=== PATIENT | male | born 1965 | race Caucasian/White ===

== ENCOUNTER 2017-09-18 18:09 | Observation (INO) ==
[2017-09-18] MEDS ORDERED: 0.9 % Sodium Chloride 1,000 ML IVC ONE (19:13)
--- NOTE | 2017-09-18 19:13 | Emergency Department Note ---
Disposition Clinical Impression: Brugada syndrome, Vertigo Syncope Qualifiers: Syncope type: unspecified Qualified Code(s): R55 - Syncope and collapse Disposition: Admitted As Inpatient Condition: Good Time of Disposition: 21:18 General Adult HPI - General Chief complaint: ED Syncope Stated complaint: Near Syncope Time Seen by Provider: 09/18/17 18:14 Source: patient, EMS Limitations: no limitations Nursing Notes Reviewed: Yes Vital Signs Reviewed: Yes - History of Present Illness HPI Narrative: 52-year-old male with past medical history of CAD, hypertension, diabetes presents to the emergency department after having a syncopal episode at work. 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 While at work, patient states that he began getting dizzy, having the sensation that the room is spinning, and states that he passed out. Patient states that he was caught by fellow employees before he hit the ground. Patient denies having any history of this before. Patient states that he has a headache that he describes pain all over. Patient's fiancee states that he acts like this when he has issues with his diabetes. Patient does not currently have insurance so he can't get his medications. Pain Scale: 9 - Related Data Home Medications Medication Instructions Recorded Confirmed Aspirin Enteric Coated [Aspirin EC] 81 mg PO DAILY 09/18/17 09/18/17 Esomeprazole Magnesium [Nexium 20 mg PO DAILY 09/18/17 09/18/17 24Hr] Famotidine [Pepcid] 20 mg PO DAILY 09/18/17 09/18/17 Insulin DETEMIR [Levemir Flextouch] 80 unit SQ BID 09/18/17 09/18/17 Insulin LISPRO [Humalog Kwikpen 45 unit SQ BID 09/18/17 09/18/17 U-100] Allergies Allergy/AdvReac Type Severity Reaction Status Date / Time No Known Allergies Allergy Verified 12/21/15 22:42 All systems ED: reviewed and negative except as stated. Review of Systems: As Per HPI Constitutional: Denies: fever Cardiovascular: Reports: syncope. Denies: chest pain, palpitations Respiratory: Denies: dyspnea Gastrointestinal: Denies: nausea, vomiting Genitourinary: Denies: urgency Musculoskeletal: Denies: back pain Integumentary: Denies: rash Neurological: Reports: headache, paresthesias, vertigo Endocrine: Denies: fatigue Past Medical History - Past Medical History Medical history: Reports: diabetes, hypertension, myocardial infarction Psychiatric history: Reports: no psych history - Social History Smoking Status: Current every day smoker Smokeless Tobacco Status: Yes Alcohol use: Reports: occasionally Drug use: Reports: none Physical Exam General: 52-year-old male, speech is sluggish but not slurred Head: autraumatic, EOMI, no conjuncitval pallor, no scleral icterus, Mouth: oral mucous membranes moist Neck: neck soft, trachea midline Chest:: Equal chest wall rise Lungs: Normal lungs sounds bilaterally, no wheezes, no respiratory distress Heart: normal heart sounds, normal rate and rhythm, Abdomen: soft, non-tender, no rigidity, no guarding, no rebdound tenderness Lower Extremities: no pedal edema, calves non-tender Integumentary: Skin warm, dry, and intact Neuro: Bilateral horizontal nystagmus , constricted pupils Alert and oriented to person, place, time, cranial nerves II through XII grossly intact, strength 5 out of 5 in the upper and lower extremities bilaterally, sensation intact, no pronator drift, GCS 15 Psych: normal affect, normal mood - General Limitations: no limitations General appearance: alert, in no apparent distress Course Vital Signs Temperature 97.8 F 09/18/17 18:10 Pulse Rate 88 09/18/17 18:10 Respiratory Rate 16 09/18/17 18:10 Blood Pressure 123/90 09/18/17 18:10 O2 Sat by Pulse Oximetry 97 09/18/17 18:10 Temperature 98.8 F 09/20/17 11:56 Pulse Rate 85 09/20/17 11:56 Respiratory Rate 15 09/20/17 11:56 Blood Pressure 119/79 09/20/17 11:56 O2 Sat by Pulse Oximetry 96 09/20/17 11:56 Oxygen Delivery Oxygen Delivery Room Air Medical Decision Making - [facility] Narrative Medical decision making narrative: 52-year-old male presents to the emergency department after having his first syncopal episode. This was initially concerning for arrhythmia. Electrocardiogram obtained reveals a Brugada-type pattern. CT scan of the head was obtained and is the patient appeared to have an altered mental status. Patient's stated that his was a little more sluggish than normal. CT scan of the head was normal. Patient was given IV normal saline, Benadryl, Reglan, Toradol in the emergency department. He is also given meclizine for his vertigo. After administration of the medications, patient began to seem more alert and stated that his vertigo went away and that his headache had reduced. Patient had a mild leukocytosis of 11.9 but I do not suspect an infection at this time. I spoke with the inventory control coordinator on the phone regarding the patient's Brugada-type pattern. He stated that he will be okay to console him on the case and he would come by and see the patient in the morning. I spoke with the hospitalist regarding this patient as the electrocardiogram findings with a first episode of syncope with history of sudden cardiac in the family with this picture of new onset vertigo and headache was concerning to send this patient home. He agreed to admit the patient to time. I spoke with the patient and his fiancee regarding admission and they agreed with the plan. Chest X-Ray 09/18/17 18:18 IMPRESSION: No acute process. Mild left lower lobe atelectasis D/ / Sergio Hernandez MD / Sergio Hernandez MD Interpreting Provider: Sergio Hernandez MD Head CT 09/18/17 18:19 IMPRESSION: Negative CT brain with no acute intracranial abnormality. D/ / Oj Wright MD / Oj Wright MD Interpreting Provider: Oj Wright MD Vital Signs Temperature 97.8 F 09/18/17 18:10 Pulse Rate 88 09/18/17 18:10 Respiratory Rate 16 09/18/17 18:10 Blood Pressure 123/90 09/18/17 18:10 O2 Sat by Pulse Oximetry 97 09/18/17 18:10 Temperature 98.6 F 09/18/17 23:07 Pulse Rate 73 09/18/17 23:07 Respiratory Rate 16 09/18/17 23:07 Blood Pressure 108/70 09/18/17 23:07 O2 Sat by Pulse Oximetry 96 09/18/17 23:07 Oxygen Delivery Oxygen Delivery Room Air - Medical Records Medical records reviewed: Yes I reviewed the patient's medical records. - Lab Data Lab results reviewed: Yes I reviewed the patient's lab results. Result diagrams: 09/20/17 02:46 09/20/17 02:46 Lab Results 09/18/17 09/18/17 09/18/17 Range/Units 19:04 19:04 19:04 WBC 11.9 H (4.3-11.1) K/mcL RBC 4.81 (4.19-5.50) M/mcL Hgb 14.9 (12.9-16.9) g/dL Hct 39.8 (37.5-50.1) % MCV 82.7 L (83.0-100.0) fL MCH 31.0 (28.0-33.3) pg MCHC 37.4 H (31.6-35.5) g/dL RDW 12.1 (11.5-14.5) % Plt Count 210 (140-400) K/mcL MPV 8.9 L (9.4-12.4) fL Immature Gran % 0.4 (0-4) % Seg Neutrophils % 87.1 % Lymphocytes % 8.2 % Monocytes % 3.7 % Eosinophils % 0.3 % Basophils % 0.3 % Neutrophils # 10.4 H (1.6-8.9) K/mcL Lymphocytes # 1.0 (0.6-4.6) K/mcL Monocytes # 0.4 (0.0-1.3) K/mcL Eosinophils # 0.0 (0.0-0.6) K/mcL Basophils # 0.0 (0.0-0.2) K/mcL PT 11.2 (9.4-12.1) Seconds INR 1.0 APTT 28.6 (26.0-36.0) Seconds Sodium 134 L (136-145) mEq/L Potassium 3.7 (3.5-4.5) mEq/L Chloride 100 (98-109) mEq/L Carbon Dioxide 24 (19-29) mEq/L BUN 10 (8-26) mg/dL Creatinine 0.97 (0.72-1.25) mg/dL Est GFR ( Amer) > 60 (> 60) Est GFR (Non-Af Amer) > 60 (> 60) BUN/Creatinine Ratio 10 (6-26) Glucose 237 H (70-99) mg/dL POC Glucose (58-89) Calculated Osmolality 285 (280-300) Calcium 9.1 (8.6-10.8) mg/dL Troponin I (0-0.03) ng/mL Beta-Hydroxybutyric Acd (0.02-0.27) mmol/L Urine Color (Yellow) Urine Clarity (Clear) Urine pH (5.0-8.0) pH Units Ur Specific [place] (1.010-1.025) Urine Protein (Neg-Trace) mg/dL Urine Glucose (UA) (Normal) mg/dL Urine Ketones (Negative) mg/dL Urine Blood (Negative) Urine Nitrite (Negative) Urine Bilirubin (Negative) Urine Urobilinogen (Normal) mg/dL Ur Leukocyte Esterase (Negative) Ur Culture Indicated? (NO) Urine Opiates Screen (Yjipsn=903) ng/mL Ur Barbiturates Screen (Lxewgi=055) ng/mL Ur Phencyclidine Scrn (Cutoff=25) ng/mL Ur Amphetamines Screen (Rmckys=5825) ng/mL U Benzodiazepines Scrn (Fctvkj=974) ng/mL Urine Cocaine Screen (Cutoff= 300) ng/mL U Marijuana (THC) Screen (Cutoff = 50) ng/mL 09/18/17 09/18/17 09/18/17 Range/Units 19:04 19:04 19:19 WBC (4.3-11.1) K/mcL RBC (4.19-5.50) M/mcL Hgb (12.9-16.9) g/dL Hct (37.5-50.1) % MCV (83.0-100.0) fL MCH (28.0-33.3) pg MCHC (31.6-35.5) g/dL RDW (11.5-14.5) % Plt Count (140-400) K/mcL MPV (9.4-12.4) fL Immature Gran % (0-4) % Seg Neutrophils % % Lymphocytes % % Monocytes % % Eosinophils % % Basophils % % Neutrophils # (1.6-8.9) K/mcL Lymphocytes # (0.6-4.6) K/mcL Monocytes # (0.0-1.3) K/mcL Eosinophils # (0.0-0.6) K/mcL Basophils # (0.0-0.2) K/mcL PT (9.4-12.1) Seconds INR APTT (26.0-36.0) Seconds Sodium (136-145) mEq/L Potassium (3.5-4.5) mEq/L Chloride (98-109) mEq/L Carbon Dioxide (19-29) mEq/L BUN (8-26) mg/dL Creatinine (0.72-1.25) mg/dL Est GFR ( Amer) (> 60) Est GFR (Non-Af Amer) (> 60) BUN/Creatinine Ratio (6-26) Glucose (70-99) mg/dL POC Glucose 237 H (58-89) Calculated Osmolality (280-300) Calcium (8.6-10.8) mg/dL Troponin I 0.00 (0-0.03) ng/mL Beta-Hydroxybutyric Acd 0.21 (0.02-0.27) mmol/L Urine Color (Yellow) Urine Clarity (Clear) Urine pH (5.0-8.0) pH Units Ur Specific [place] (1.010-1.025) Urine Protein (Neg-Trace) mg/dL Urine Glucose (UA) (Normal) mg/dL Urine Ketones (Negative) mg/dL Urine Blood (Negative) Urine Nitrite (Negative) Urine Bilirubin (Negative) Urine Urobilinogen (Normal) mg/dL Ur Leukocyte Esterase (Negative) Ur Culture Indicated? (NO) Urine Opiates Screen (Ytzwie=200) ng/mL Ur Barbiturates Screen (Qjhqrx=655) ng/mL Ur Phencyclidine Scrn (Cutoff=25) ng/mL Ur Amphetamines Screen (Jrnfvl=4272) ng/mL U Benzodiazepines Scrn (Tlttpg=869) ng/mL Urine Cocaine Screen (Cutoff= 300) ng/mL U Marijuana (THC) Screen (Cutoff = 50) ng/mL 09/18/17 09/18/17 Range/Units 19:31 19:31 WBC (4.3-11.1) K/mcL RBC (4.19-5.50) M/mcL Hgb (12.9-16.9) g/dL Hct (37.5-50.1) % MCV (83.0-100.0) fL MCH (28.0-33.3) pg MCHC (31.6-35.5) g/dL RDW (11.5-14.5) % Plt Count (140-400) K/mcL MPV (9.4-12.4) fL Immature Gran % (0-4) % Seg Neutrophils % % Lymphocytes % % Monocytes % % Eosinophils % % Basophils % % Neutrophils # (1.6-8.9) K/mcL Lymphocytes # (0.6-4.6) K/mcL Monocytes # (0.0-1.3) K/mcL Eosinophils # (0.0-0.6) K/mcL Basophils # (0.0-0.2) K/mcL PT (9.4-12.1) Seconds INR APTT (26.0-36.0) Seconds Sodium (136-145) mEq/L Potassium (3.5-4.5) mEq/L Chloride (98-109) mEq/L Carbon Dioxide (19-29) mEq/L BUN (8-26) mg/dL Creatinine (0.72-1.25) mg/dL Est GFR ( Amer) (> 60) Est GFR (Non-Af Amer) (> 60) BUN/Creatinine Ratio (6-26) Glucose (70-99) mg/dL POC Glucose (58-89) Calculated Osmolality (280-300) Calcium (8.6-10.8) mg/dL Troponin I (0-0.03) ng/mL Beta-Hydroxybutyric Acd (0.02-0.27) mmol/L Urine Color Yellow (Yellow) Urine Clarity Clear (Clear) Urine pH 6.0 (5.0-8.0) pH Units Ur Specific [place] 1.023 (1.010-1.025) Urine Protein Negative (Neg-Trace) mg/dL Urine Glucose (UA) >=1000 H (Normal) mg/dL Urine Ketones Negative (Negative) mg/dL Urine Blood Negative (Negative) Urine Nitrite Negative (Negative) Urine Bilirubin Negative (Negative) Urine Urobilinogen Normal (Normal) mg/dL Ur Leukocyte Esterase Negative (Negative) Ur Culture Indicated? NO (NO) Urine Opiates Screen Negative (Bxyqfk=691) ng/mL Ur Barbiturates Screen Negative (Coxtqe=561) ng/mL Ur Phencyclidine Scrn Negative (Cutoff=25) ng/mL Ur Amphetamines Screen Negative (Zhiydx=4021) ng/mL U Benzodiazepines Scrn Negative (Fowpwr=946) ng/mL Urine Cocaine Screen Negative (Cutoff= 300) ng/mL U Marijuana (THC) Screen Negative (Cutoff = 50) ng/mL - Radiology Data Radiology results reviewed: Yes I reviewed the patient's radiology results. Chest X-Ray 09/18/17 18:18 IMPRESSION: No acute process. Mild left lower lobe atelectasis D/ / Sergio Hernandez MD / Sergio Hernandez MD Interpreting Provider: Sergio Hernandez MD Head CT 09/18/17 18:19 IMPRESSION: Negative CT brain with no acute intracranial abnormality. D/ / Oj Wright MD / Oj Wright MD Interpreting Provider: Oj Wright MD Echocardiogram 09/19/17 21:46 Impressions: LVEF 60%. Moderate left ventricular diastolic dysfunction. Normal right ventricular structure and function. Mild tricuspid regurgitation. No pulmonary hypertension. Left Ventricular Wall Motion: Rest Echo Findings All wall segments showed normal motion. Findings: Study Quality * Technically adequate exam. ECG Findings * Normal sinus rhythm. Left Ventricle * LVEF 60%. * Normal LV chamber size, wall thickness and function. * Moderate left ventricular diastolic dysfunction. Right Ventricle * Normal right ventricular structure and function. Left Atrium * Normal left atrial size. Right Atrium * Normal right atrial size. Aortic Valve * Trileaflet aortic valve. * Normal aortic valve structure. * No aortic stenosis. * Trace aortic regurgitation. Mitral Valve * Normal mitral valve structure. * No mitral regurgitation. * No mitral stenosis. Tricuspid Valve * Normal tricuspid valve structure. * Mild tricuspid regurgitation. * Estimated RA pressure is 8 mmHg. * Estimated RVSP is 28 mmHg. * No pulmonary hypertension. Pulmonic Valve * Pulmonic valve is not well visualized. * No pulmonic stenosis. * No pulmonic regurgitation. Pulmonary Artery * Pulmonary artery not well visualized. Aorta * Normally sized aortic root. Pericardium * There is no pericardial effusion present. Interatrial Septum * No evidence of PFO by color Doppler. IVC * The IVC is not dilated. * < 50% respiratory change. - EKG Data EKG #1 EKG attestation: Yes I reviewed and interpreted this EKG. EKG results narrative: 18:21 Ventricular rate 87 bpm, MI interval 159 ms, QRS duration 106 ms, QT 383 ms, QTC 428 ms, normal axis. Sinus rhythm with a ventricular rate of 87 bpm. Lead V2 revealed closed, saddle back ST elevation that is concerning for Brugada. This is slightly worsened from a previous electrocardiogram performed on February 23, 2009. Attestation Statement - Attestation Attestation: I examined this patient and my medical decision-making was reviewed with the Resident Physician, Dr. Hairston. I agree with the documented findings, disposition and treatment plan as described except to the extent set forth below. Pt is a 52 yo wm, with a hx of medication noncompliance and DM, HTN, who presents to the ER for syncope. Pt reports that he was at work, began having acute onset of dizziness, which he described as feeling like the "room was spinning", and then syncope. Pt was caught by co-workers, so no hx fall/trauma. Pt awakened within a few mintues, able to speak clearly. No shaking, no tongue biting, and no incontinence. Pt denies any preceding CP/press, heaviness, no SOB , no preceding VANN, no visual changes, no weakness/numbness of the ext. Pt on arrival now c/o mild gen VANN, grad in onset since the syncope, which he reports as similar to prior VANN's which he frequently experiences. Pt still c/o dizziness , but no other assocd sxs. I agree with pt's PE findings as documented. VS stable on arrival, NIHSS=0 on arrival. Pt seems drowsy, but GCS=15, oriented x 4. Pt's EKG on arrival significant for Brugada pattern, NSR. Pt received IV meds for VANN, dizziness, nausea, with significant improvement of his sxs. CXR and CT brain wnl. Labs otherwise wnl. Will admit pt for further cardiac eval for syncope with Brugada pattern on EKG. No prior cardiac eval. Also further eval for vertigo/VANN. D/W hospitalist who accepts pt for admission. VSS throughout ED course.
[2017-09-18] MEDS ORDERED: Ketorolac 15 MG/ML VIAL IVP ONE (19:14)
[2017-09-18 19:28] LABS: BUN/Creatinine Ratio 10 (6-26); Blood Urea Nitrogen 10 mg/dL (8-26); Calcium 9.1 mg/dL (8.6-10.8); Carbon Dioxide 24 mEq/L (19-29); Chloride 100 mEq/L (98-109); Glucose 237 mg/dL (70-99); Osmolality,Calculated 285 (280-300); Potassium 3.7 mEq/L (3.5-4.5); Sodium 134 mEq/L (136-145); eGFR For African Americans > 60 (> 60); eGFR For Non-African Americans > 60 (> 60)
[2017-09-18 19:31] LABS: Basophils % 0.3 %; Eosinophils % 0.3 %; Hematocrit 39.8 % (37.5-50.1); Hemoglobin 14.9 g/dL (12.9-16.9); Immature Granulocytes % 0.4 % (0-4); Lymphocytes % 8.2 %; Mean Corpuscular Volume 82.7 fL (83.0-100.0); Mean Platelet Volume 8.9 fL (9.4-12.4); Monocytes # 0.4 K/mcL (0.0-1.3); Monocytes % 3.7 %; Neutrophils # 10.4 K/mcL (1.6-8.9); Platelet Count 210 K/mcL (140-400); Red Blood Count 4.81 M/mcL (4.19-5.50); Red Cell Distribution Width 12.1 % (11.5-14.5); Segmented Neutrophils % 87.1 %
[2017-09-18 19:32] LABS: Mean Corpuscular HGB Conc 37.4 g/dL (31.6-35.5)
[2017-09-18 19:33] LABS: Prothrombin Time 11.2 Seconds (9.4-12.1)
[2017-09-18 19:35] LABS: Activated Partial Thrombo Time 28.6 Seconds (26.0-36.0)
[2017-09-18 19:41] LABS: Bilirubin,Urine Negative (Negative); Blood,Urine Negative (Negative); Clarity,Urine Clear (Clear); Color,Urine Yellow (Yellow); Glucose,Urine (UA) >=1000 mg/dL (Normal); Ketones,Urine Negative (Negative); Leukocyte Esterase,Urine Negative (Negative); Nitrite,Urine Negative (Negative); Protein,Urine Negative (Neg-Trace); Specific Gravity,Urine 1.023 (1.010-1.025); Urobilinogen,Urine Normal (Normal)
[2017-09-18 19:46] LABS: Amphetamine Screen,Urine Negative ng/mL (Cutoff=1000); Barbiturate Screen,Urine Negative ng/mL (Cutoff=200); Benzodiazepines Screen,Urine Negative ng/mL (Cutoff=200); Cannabinoid Screen,Urine Negative ng/mL (Cutoff = 50); Cocaine Screen,Urine Negative ng/mL (Cutoff= 300); Opiate Screen,Urine Negative ng/mL (Cutoff=300); Phencyclidine Screen,Urine Negative ng/mL (Cutoff=25)
[2017-09-18] MEDS ORDERED: Metoclopramide 10 MG/2 ML VIAL IVP ONE (20:11)
[2017-09-18] MEDS ORDERED: *HR* OxyCODONE Immed Rel 5 MG TABLET PO PRN (21:41)
[2017-09-18] MEDS ORDERED: Naloxone 0.4 MG/ML INJ IVP PRN (21:41)
[2017-09-18] MEDS ORDERED: INSULIN DETEMIR 80 UNIT SQ SCH (21:45)
[2017-09-18] MEDS ORDERED: *HR* Dextrose 50 % in Water (Syg) 50 ML SYRINGE IVP PRN (21:46)
[2017-09-18] MEDS ORDERED: D5% in Water 1,000 ML IVC PRN (21:46)
[2017-09-18] MEDS ORDERED: Dextrose Gel 15 GM PO PRN ×2 (21:46)
--- NOTE | 2017-09-18 21:49 | Internal Med History&Physical ---
Date of Encounter: 09/18/17 Time of Encounter: 21:47 Assessment and Plan (1) Near syncope Current visit: Yes Status: Acute Possibly related to dehydration/vasovagal EKG reads possible Brugada pattern, ER spoke with cardiology and the patient will be evaluated in the morning Monitor with telemetry, order echocardiogram Fall precautions Protonix 40 a prophylaxis and subcutaneous heparin for DVT prophylaxis. The patient will be admitted for observation. Full code. Time spent this admission 40 minutes (2) CAD (coronary artery disease) Current visit: Yes Status: Acute Continue aspirin Not taking a beta hamlet Qualifiers: Coronary Disease-Associated Artery/Lesion type: [place] artery [place] vs. transplanted heart: [place] heart Associated angina: without angina Qualified Code(s): I25.10 - Atherosclerotic heart disease of [place] coronary artery without angina pectoris (3) Tobacco abuse Current visit: Yes Status: Acute Nicotine patch ordered (4) Diabetes Current visit: Yes Status: Acute Uses Levemir 80 units twice a day Humalog 45 units twice a day, we will ordered 20 units 3 times a day plus insulin sliding scale Qualifiers: Diabetes mellitus type: type 2 Diabetes mellitus complication status: without complication Diabetes mellitus fci insulin use: without fci use Qualified Code(s): E11.9 - Type 2 diabetes mellitus without complications (5) GERD (gastroesophageal reflux disease) Current visit: Yes Status: Acute Continues Protonix IV and may switch to oral PPI in the morning, the patient takes Nexium Continue famotidine, needs follow-up as an outpatient Qualifiers: Esophagitis presence: without esophagitis Qualified Code(s): K21.9 - Gastro -esophageal reflux disease without esophagitis Internal Medicine - H&P: HPI Chief complaint: Near syncopal Admitted From: Emergency Dept History of present illness: Mr. Shook is a 52 year old male with a past medical history of CAD with stents , diabetes type 2 insulin-dependent, tobacco use, GERD, came to the emergency room complaining of dizziness that started at 5:30 PM, he was at work and all of a sudden he felt dizzy like the room was spinning and almost fell, was caught by a coworker, did not lose consciousness or hit his head. He came to the emergency room and EKG reads possible Brugada pattern. He has never had this problem before but has experienced some nonspecific symptoms due to diabetes. CT scan of the head was unremarkable chest x-ray shows left mid lung atelectasis. He says he did not eat all day as he woke up with a very bad heartburn. Glucose is still 237 sodium 134 wet blood cell count 11.9 and has been complaining of a headache since the morning. Denies any other complaints, has not taken his insulin Past Med Surg Social Fam HX - Past Medical History Medical history: coronary artery disease (With history of stent), diabetes ( Insulin-dependent), GERD, hypertension, myocardial infarction, other (GERD, tobacco use) Psychiatric history: no psych history - Past Surgical History Surgical History: angioplasty/stent, orthopedic, other (Bilateral shoulder surgeries) - Social History Smoking Status: Current every day smoker Packs per day: Vapes Smokeless Tobacco Status: Yes Alcohol use: occasionally Drug use: none - Additional Family History Additional family history: Mother with a first myocardial infarction at the age of 38, father with several CVAs Internal Medicine - H&P: Meds Aspirin Enteric Coated [Aspirin EC] 81 mg PO DAILY 09/18/17 [History] Esomeprazole Magnesium [Nexium 24Hr] 20 mg PO DAILY 09/18/17 [History] Famotidine [Pepcid] 20 mg PO DAILY 09/18/17 [History] Insulin DETEMIR [Levemir Flextouch] 80 unit SQ BID 09/18/17 [History] Insulin LISPRO [Humalog Kwikpen U-100] 45 unit SQ BID 09/18/17 [History] 3 Allergy/AdvReac Type Severity Reaction Status Date / Time No Known Allergies Allergy Verified 12/21/15 22:42 All Systems PM: A 10-system review of systems was performed and is negative for pertinent findings except as documented above in the HPI. Review of systems: Mild headache, dizziness was worse when he was standing up. Other systems out of the 10 review are negative - Constitutional Vitals: Temp Pulse Resp BP Pulse Ox 97.8 F 86 13 113/75 95 09/18/17 18:10 09/18/17 21:45 09/18/17 21:45 09/18/17 21:45 09/18/17 21:45 General appearance: Present: A&O X 3 - Head Head exam: Present: atraumatic, normocephalic - Eye Eye exam: Present: PERRL, conjuntiva pink, sclera anicteric Pupils: Present: PERRL - Neck Neck exam general surgery: Present: supple, trachea midline. Absent: lymphadenopathy - Respiratory Respiratory exam: Present: CTAB. Absent: accessory muscle use, rales, rhonchi, wheezes - Cardiovascular Cardiovascular exam: Present: RRR, +S1, +S2. Absent: diastolic murmur, gallop, rubs, systolic murmur - GI/Abdominal GI/Abdominal exam: Present: normal bowel sounds, soft, no peritoneal signs. Absent: distended, tenderness - Extremities Exam Extremities exam: Present: warm, radial pulses palpable and symmetrical. Absent : calf tenderness, cyanotic, pedal edema - Neurological Exam Neurological exam: Present: CN II-XII intact, oriented X3, no focal deficits. Absent: pronater drift, facial droop, speech deficit - Skin Skin exam: Present: dry, intact Internal Med - H&P Results - Labs CBC & Chem 7: 09/18/17 19:04 09/18/17 19:04
[2017-09-18] MEDS: 0.9 % Sodium Chloride 1,000 ML IVC SCH (23:35)
[2017-09-18] MEDS: *HR* Heparin 5,000 UNIT/ML VIAL SQ SCH (23:35)
[2017-09-18] MEDS: Pantoprazole 40 MG VIAL IVP SCH (23:36)
[2017-09-18] MEDS: Famotidine 20 MG TABLET PO SCH (23:36)
[2017-09-18] MEDS: Insulin LISPRO 300 UNITS/3 ML VIAL SQ SCH (23:37)
[2017-09-18] MEDS: Insulin DETEMIR 100 UNIT/ML X5UNITS SQ SCH (23:40)
[2017-09-19] MEDS: Acetaminophen 325 MG TABLET PO PRN ×2 (03:57→14:46)
[2017-09-19 05:04] LABS: Hemoglobin A1C 9.6 %
[2017-09-19 05:16] LABS: BUN/Creatinine Ratio 12 (6-26); Blood Urea Nitrogen 11 mg/dL (8-26); Calcium 8.5 mg/dL (8.6-10.8); Carbon Dioxide 22 mEq/L (19-29); Chloride 106 mEq/L (98-109); Chol/HDL Ratio 4.8 (0-4.9); Cholesterol 213 mg/dL (< 200); Glucose 262 mg/dL (70-99); HDL Cholesterol 44 mg/dL (40-59); LDL Cholesterol,Calculated 99 mg/dL (0-99); Osmolality,Calculated 292 (280-300); Potassium 3.4 mEq/L (3.5-4.5); Sodium 137 mEq/L (136-145); Triglycerides 348 mg/dL (< 150); eGFR For African Americans > 60 (> 60); eGFR For Non-African Americans > 60 (> 60)
[2017-09-19] MEDS: Famotidine 20 MG TABLET PO SCH ×2 (06:23→16:03)
[2017-09-19] MEDS: *HR* Heparin 5,000 UNIT/ML VIAL SQ SCH ×3 (06:23→21:13)
[2017-09-19] MEDS: Pantoprazole 40 MG VIAL IVP SCH (08:04)
[2017-09-19] MEDS: Aspirin Enteric Coated 81 MG Tablet PO SCH (08:04)
[2017-09-19] MEDS: Nicotine 14 MG PATCH.TD24 TD SCH (08:04)
[2017-09-19] MEDS: Insulin LISPRO 300 UNITS/3 ML VIAL SQ SCH ×7 (08:05→20:18)
--- NOTE | 2017-09-19 09:31 | Cardiology Consult Note ---
Date of Encounter: 09/19/17 Time of Encounter: 09:29 Assessment and Plan (1) Near syncope Current Visit: Yes Status: Acute Most likely due to Orthostatic hypotension 2/2 uncontrolled diabetes/tobacco abuse/dehydration vs possibly 2/2 ACS/Brugada. A1C 9.6. EKG machine read Brugada, possible ST elevation in V2 similar to EKG take in 2009. Trops neg x1. Patient has no symptoms of ACS/CHF. Mother [place] at age 38 is concerning. - serial trops and ekg ordered - echo pending - stress test - consider social work consult for help with insurance and medications (2) CAD (coronary artery disease) Current Visit: Yes Status: Acute Patient has known hx of CAD with stent placement. EKG showed elevated ST elevation in V2 similar to EKG from 2009. ABDELRAHMAN score 3 - 4.4% risk of all- cause mortality. Patient continues to smoke, and currently takes only ASA81, and statin at home. Does not take B-hamlet at home. Qualifiers: Coronary Disease-Associated Artery/Lesion type: [place] artery [place] vs. transplanted heart: [place] heart Associated angina: without angina Qualified Code(s): I25.10 - Atherosclerotic heart disease of [place] coronary artery without angina pectoris (3) Tobacco abuse Current Visit: Yes Status: Acute Patient quit smoking 3 years ago, and currently vaps. 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 All questions were answered. Thank you for involving us in the care of your patient. Please call with any questions. History of Present Illness Consult date: 09/19/17 Requesting physician: Florencio Kasper Consult reason: EKG abnormality Chief complaint: dizziness History of present illness: Mr. Shook is a 52 year old male w/ PMHx of CAD w/ stent, T2DM, current tob use , and GERD who presented to the ED last night due to dizziness and feeling faint. In the ED, EKG was taken, and machine read Brugada pattern. Mother from [place] when she was 38. This is his first time having these types of symptoms. Unable to review old Medical Records, patient is not seen by [facility]. Patient reports having bad heartburn all day yesterday, and then last night at work he became light headed and the room started spinning, his coworker caught patient, but he reports fall but not losing consciouness. Patient did not eat all day yesterday, and has had an associated headache. Patient does not have insurance and pays for all medications out of pocket. He ran out of his nexium 2 days ago, and that's when started developing symptoms. Patient reports non-compliance with some home medications, but takes his ASA81, nexium, and insulin. Patient denies chest pain, SOB, sweating, inability to lay flat, waking up in the middle of the night to catch his breath, or increase SOB on exertion. Patient quit smoking 3 years ago and currently vaps. Past Med Surg Social Fam HX - Past Medical History Medical history: diabetes, hypertension, myocardial infarction Psychiatric history: no psych history - Past Surgical History Surgical History: angioplasty/stent, arthroscopy, orthopedic, other - Social History Smoking Status: Current every day smoker Packs per day: Vapes Smokeless Tobacco Status: Yes Alcohol use: occasionally Drug use: none - Family History Mother Living Status: Hx Family Cardiac Disorders: Yes Father Living Status: Hx Family Cardiac Disorders: Yes Medications and Allergies Aspirin Enteric Coated [Aspirin EC] 81 mg PO DAILY 09/18/17 [History] Esomeprazole Magnesium [Nexium 24Hr] 20 mg PO DAILY 09/18/17 [History] Famotidine [Pepcid] 20 mg PO DAILY 09/18/17 [History] Insulin DETEMIR [Levemir Flextouch] 80 unit SQ BID 09/18/17 [History] Insulin LISPRO [Humalog Kwikpen U-100] 45 unit SQ BID 09/18/17 [History] 3 Allergy/AdvReac Type Severity Reaction Status Date / Time No Known Allergies Allergy Verified 12/21/15 22:42 All Systems Review: A 10-system review of systems was performed and is negative for pertinent findings except as documented above in the HPI. - Constitutional Constitutional: headache(s), no anorexia - EENT Eyes: no blurred vision - Respiratory Respiratory: no cough, no dyspnea - Gastrointestinal Gastrointestinal: no abdominal pain - Neurological Neurological: dizziness, syncope (patient unsure if he lost consciousness or not ), no abnormal speech - Psychiatric Psychiatric: no anxiety, no depression Physical Examination Vital Signs, Last 4 Hours Temp Pulse Resp BP Pulse Ox 09/19/17 07:15 98.3 F 66 18 112/71 93 General: Conversant, No Apparent Distress HEENT: Atraumatic, Normocephaly, Mucus Membranes Moist, Other (no trauma during fal) Neck: Normal carotid pulses, Other (no carotid bruits) Cardiac: Reg Rate and Rhythm, Normal S1 and S2, No Murmur Lungs: Normal Breath Sounds, No Wheeze, Rales, Rhonchi Neuro: Alert and responsive, No focal deficits noted Abdomen: Soft, Non-Tender Skin: No rashes noted on visualized skin Musculoskeletal: No Chest Wall Tenderness Extremities: No Clubbing, No Cyanosis, No Edema, Normal Pulses Results 09/18/17 19:04 09/19/17 04:29 Lab Results 09/19/17 04:29 Sodium 137 Potassium 3.4 L Chloride 106 Carbon Dioxide 22 BUN 11 Creatinine 0.95 Glucose 262 H Calcium 8.5 L Consult Discharge Plan - Plan Referrals: Tenisha Benjamin [Primary Care Provider] -
[2017-09-19] MEDS: Insulin DETEMIR 100 UNIT/ML X5UNITS SQ SCH ×2 (12:38→20:00)
[2017-09-19] MEDS ORDERED: Ibuprofen 800 MG TABLET PO ONE (15:27)
--- NOTE | 2017-09-19 15:29 | Internal Med Progress Note ---
Date of Encounter: 09/19/17 Time of Encounter: 15:27 - Assessment and plan (1) CAD (coronary artery disease) Current Visit: Yes Status: Acute Assessment and plan: Leon Shook is a 52-year-old male with past medical history CAD, diabetes, tobacco use and migraines who presented to [facility] on 09/18 after a near-syncope event. Placed in observation status for further workup and treatment. 1. Syncope: On day of presentation. Patient reports an episode of almost passing out, states a coworker had to catch him so he did not fall. Did not lose consciousness. EKG concerning for Brugada pattern. Echo, stress test pending. May need EP evaluation. Cardiology following. 2. CAD: per hx with stents. Denies chest pain, troponin X2 negative. EKG as noted above. 09/19/2017 TTE with EF 60% and moderate diastolic dysfunction. Stress test planned for 09/20. LDL 100. Continue ASA, statin. 3. Migraines: per patient reported history. Relief with 800 mg ibuprofen. One time disordered 4. Diabetes: per hx. uncontrolled. Hgb A1c 9.6%. Continue home long-acting insulin. SSI. Monitor blood sugars and titrate PRN 5. Tobacco use: Current smoker. Cessation advised. Declines nicotine replacement therapy. 6. DVT prophylaxis: heparin Qualifiers: Coronary Disease-Associated Artery/Lesion type: [place] artery [place] vs. 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 Information obtained from chart review and patient report. Patient says he feels overall better but [place] of a headache. Says he gets migraines at home and takes 800 mg ibuprofen for relief. No chest pain, no shortness of breath, no palpitations or lightheadedness. No further near syncope incidents. - Constitutional Vitals: Temp Pulse Resp BP Pulse Ox 97.9 F 86 18 110/72 95 09/19/17 15:14 09/19/17 15:14 09/19/17 15:14 09/19/17 15:14 09/19/17 15:14 General appearance: Present: A&O X 3 - Head Head exam: Present: atraumatic, normocephalic - Eye Eye exam: Present: PERRL, conjuntiva pink, sclera anicteric Pupils: Present: PERRL - Neck Neck exam general surgery: Present: supple, trachea midline. Absent: lymphadenopathy - Respiratory Respiratory exam: Present: CTAB. Absent: accessory muscle use, rales, rhonchi, wheezes - Cardiovascular Cardiovascular exam: Present: RRR, +S1, +S2. Absent: diastolic murmur, gallop, rubs, systolic murmur - GI/Abdominal GI/Abdominal exam: Present: normal bowel sounds, soft, no peritoneal signs. Absent: distended, tenderness - Extremities Exam Extremities exam: Present: warm, radial pulses palpable and symmetrical. Absent : calf tenderness, cyanotic, pedal edema - Neurological Exam Neurological exam: Present: CN II-XII intact, oriented X3, no focal deficits. Absent: pronater drift, facial droop, speech deficit - Skin Skin exam: Present: dry, intact Internal Medicine: Result - Labs CBC & Chem 7: 09/18/17 19:04 09/19/17 04:29 Labs: BMP 09/19/17 04:29 Sodium 137 Potassium 3.4 L Chloride 106 Carbon Dioxide 22 BUN 11 Creatinine 0.95 Glucose 262 H Calcium 8.5 L Cardiac Enzymes 09/19/17 Range/Units 09:37 Troponin I 0.00 (0-0.03) ng/mL - ABG Interpretation ABG results: PT/INR, D-dimer PT 11.2 Seconds (9.4-12.1) 09/18/17 19:04 - Impressions Impressions Echocardiogram 09/19/17 21:46 Impressions: LVEF 60%. Moderate left ventricular diastolic dysfunction. Normal right ventricular structure and function. Mild tricuspid regurgitation. No pulmonary hypertension. Left Ventricular Wall Motion: Rest Echo Findings All wall segments showed normal motion. Findings: Study Quality * Technically adequate exam. ECG Findings * Normal sinus rhythm. Left Ventricle * LVEF 60%. * Normal LV chamber size, wall thickness and function. * Moderate left ventricular diastolic dysfunction. Right Ventricle * Normal right ventricular structure and function. Left Atrium * Normal left atrial size. Right Atrium * Normal right atrial size. Aortic Valve * Trileaflet aortic valve. * Normal aortic valve structure. * No aortic stenosis. * Trace aortic regurgitation. Mitral Valve * Normal mitral valve structure. * No mitral regurgitation. * No mitral stenosis. Tricuspid Valve * Normal tricuspid valve structure. * Mild tricuspid regurgitation. * Estimated RA pressure is 8 mmHg. * Estimated RVSP is 28 mmHg. * No pulmonary hypertension. Pulmonic Valve * Pulmonic valve is not well visualized. * No pulmonic stenosis. * No pulmonic regurgitation. Pulmonary Artery * Pulmonary artery not well visualized. Aorta * Normally sized aortic root. Pericardium * There is no pericardial effusion present. Interatrial Septum * No evidence of PFO by color Doppler. IVC * The IVC is not dilated. * < 50% respiratory change. Consult Discharge Plan - Plan Referrals: Tenisha Benjamin [Primary Care Provider] - 10/07/17 3:00 pm (This appointment will be with Windy Martinez CNP. )
[2017-09-19] MEDS: 0.9 % Sodium Chloride 1,000 ML IVC SCH (19:06)
[2017-09-20 03:18] LABS: Hematocrit 35.3 % (37.5-50.1); Mean Corpuscular HGB Conc 35.7 g/dL (31.6-35.5); Mean Corpuscular Hemoglobin 30.7 pg (28.0-33.3); Mean Corpuscular Volume 86.1 fL (83.0-100.0); Mean Platelet Volume 8.8 fL (9.4-12.4); Platelet Count 197 K/mcL (140-400); Red Cell Distribution Width 12.1 % (11.5-14.5)
[2017-09-20 03:27] LABS: Hemoglobin 12.6 g/dL (12.9-16.9)
[2017-09-20 03:34] LABS: Alanine Aminotransferase 30 Units/L (0-55); Albumin 2.8 g/dL (3.5-5.0); Albumin/Globulin Ratio 0.8 (1.1-2.2); Alkaline Phosphatase 87 Units/L (38-126); Aspartate Amino Transferase 24 Units/L (5-34); BUN/Creatinine Ratio 10 (6-26); Bilirubin,Total 0.3 mg/dL (0.2-1.2); Blood Urea Nitrogen 8 mg/dL (8-26); Calcium 8.2 mg/dL (8.6-10.8); Carbon Dioxide 22 mEq/L (19-29); Chloride 110 mEq/L (98-109); Globulin 3.4 g/dL (2.4-3.5); Glucose 180 mg/dL (70-99); Osmolality,Calculated 291 (280-300); Potassium 3.6 mEq/L (3.5-4.5); Sodium 139 mEq/L (136-145); Total Protein 6.2 g/dL (6.0-8.3); eGFR For African Americans > 60 (> 60); eGFR For Non-African Americans > 60 (> 60)
[2017-09-20] MEDS: *HR* Heparin 5,000 UNIT/ML VIAL SQ SCH ×2 (06:10→14:10)
[2017-09-20] MEDS: Insulin LISPRO 300 UNITS/3 ML VIAL SQ SCH ×4 (08:40→12:14)
[2017-09-20] MEDS: Famotidine 20 MG TABLET PO SCH (08:51)
[2017-09-20] MEDS: Aspirin Enteric Coated 81 MG Tablet PO SCH (08:51)
[2017-09-20] MEDS: Pantoprazole 40 MG VIAL IVP SCH (08:52)
[2017-09-20] MEDS: Nicotine 14 MG PATCH.TD24 TD SCH (08:52)
[2017-09-20] MEDS: 0.9 % Sodium Chloride 1,000 ML IVC SCH (08:54)
[2017-09-20] MEDS ORDERED: Metoprolol XL (24 HR) Succ 25 MG TAB.ER.24H PO SCH (09:00)
[2017-09-20] MEDS: Insulin DETEMIR 100 UNIT/ML X5UNITS SQ SCH (11:27)
[2017-09-20 11:58] VITALS: BP 119/79
--- NOTE | 2017-09-20 12:45 | Cardiology Progress Note ---
Date of Encounter: 09/20/17 Time of Encounter: 12:38 Assessment and Plan (1) Brugada syndrome Current Visit: Yes Status: Acute Brugada Pattern vs Brugada Syndrome. EKG shows Brugada Type 3. Syncopal episode possibly 2/2 Brugada, patient has other risks uncontrolled T2DM, HTN, HLD, dehydration, and non-med compliance. Patient's mother from heart condition at 38 years old. (2) Near syncope Current Visit: Yes Status: Acute Most likely due to Orthostatic hypotension 2/2 uncontrolled diabetes/tobacco abuse/dehydration vs possibly 2/2 ACS/Brugada. A1C 9.6. EKG machine read Brugada, possible ST elevation in V2 similar to EKG take in 2009. Trops neg x1. Patient has no symptoms of ACS/CHF. Mother [place] at age 38 is concerning, and Brother has a been told that he has a congenital heart condition. Echo LVEF 60%. Nuclear Stress - Gated EF 69%, negative for ischemia or infarct - patient to have follow up with EP - Patient to have follow up appointment with PCP - consider social work consult for help with insurance and medications - educated patient to be strict on medication usage. Card Rx: ASA81, Toprolol XL, Atorvastatin 40 mg - cardiology will sign off now (3) CAD (coronary artery disease) Current Visit: Yes Status: Acute Patient has known hx of CAD with stent placement. EKG showed elevated ST elevation in V2 similar to EKG from 2009. ABDELRAHMAN score 3 - 4.4% risk of all- cause mortality. Patient continues to smoke, and currently takes only ASA81, and statin at home. Does not take B-hamlet at home. Qualifiers: Coronary Disease-Associated Artery/Lesion type: [place] artery [place] vs. transplanted heart: [place] heart Associated angina: without angina Qualified Code(s): I25.10 - Atherosclerotic heart disease of [place] coronary artery without angina pectoris (4) Tobacco abuse Current Visit: Yes Status: Acute Patient quit smoking 3 years ago, and currently vaps. (5) Diabetes Current Visit: Yes Status: Acute per management of medicine team Qualifiers: Diabetes mellitus type: type 2 Diabetes mellitus complication status: without complication Diabetes mellitus chcf insulin use: without intermodal dispatcher use Qualified Code(s): E11.9 - Type 2 diabetes mellitus without complications (6) GERD (gastroesophageal reflux disease) Current Visit: Yes Status: Acute per management of medicine team Qualifiers: Esophagitis presence: without esophagitis Qualified Code(s): K21.9 - Gastro -esophageal reflux disease without esophagitis Discussion w patient/family: The assessment and plan as outlined above was discussed with the patient and/or family members who expressed understanding and agreement. All questions were answered. Thank you for involving us in the care of your patient. Please call with any questions. Subjective Principal diagnosis: Brugada Pattern/Syndrome Interval history: Mr Shook is a 52 year old male w/ Brugada seen on EKG and syncopal episode. No events occurred overnight. Patient states he's feeling better and ready to leave. Patient denies chest pain, dyspnea, SOB. Objective Vital Signs, Last 4 Hours Temp Pulse Resp BP Pulse Ox 09/20/17 11:56 98.8 F 85 15 119/79 96 General: Conversant, No Apparent Distress HEENT: Atraumatic, Normocephaly, Mucus Membranes Moist Neck: No JVD, Normal carotid pulses Cardiac: Reg Rate and Rhythm, Normal S1 and S2, No Murmur Lungs: Normal Breath Sounds, No Wheeze, Rales, Rhonchi Neuro: Alert and responsive, No focal deficits noted Abdomen: Soft, Non-Tender Skin: No rashes noted on visualized skin Musculoskeletal: No Chest Wall Tenderness Extremities: No Clubbing, No Cyanosis, No Edema, Normal Pulses Results 09/20/17 02:46 09/20/17 02:46 Lab Results 09/19/17 09/19/17 09/20/17 15:33 21:10 02:46 WBC 4.9 D Hgb 12.6 L D Hct 35.3 L Plt Count 197 Sodium Potassium Chloride Carbon Dioxide BUN Creatinine Glucose Calcium Total Bilirubin AST ALT Alkaline Phosphatase Troponin I 0.00 0.00 09/20/17 02:46 WBC Hgb Hct Plt Count Sodium 139 Potassium 3.6 Chloride 110 H Carbon Dioxide 22 BUN 8 Creatinine 0.83 Glucose 180 H Calcium 8.2 L Total Bilirubin 0.3 AST 24 ALT 30 Alkaline Phosphatase 87 Troponin I Consult Discharge Plan - Plan Referrals: Tenisha Benjamin [Primary Care Provider] - 10/07/17 3:00 pm (This appointment will be with Windy Martinez CNP. )
--- NOTE | 2017-09-20 15:29 | Discharge Summary ---
Date of Encounter: 09/20/17 Time of Encounter: 15:09 - Discharge Diagnosis (1) CAD (coronary artery disease) Priority: Primary Status: Acute Comments: Leon Shook is a 52-year-old male with past medical history CAD, diabetes, tobacco use and migraines who presented to [facility] on 09/18 after a near-syncope event. Placed in observation status for further workup and treatment. He was discharged home on 09/20/2017 in stable condition with outpatient follow-up. 1. Syncope: On day of presentation. Patient reports an episode of almost passing out, did not lose consciousness. EKG concerning for Brugada pattern. Family history includes sudden cardiac in mother at age 38. TTE with EF 60% and no wall motion abnormalities. 09/19/2017 nuclear stress test negative for ischemia or infarct. Evaluated by cardiology who recommended outpatient follow-up with EP. Continue ASA, BB, statin. Recommend outpatient carotid Dopplers with PCP. 2. CAD: per hx with stents. Denies chest pain, troponin X2 negative. EKG as noted above. 09/19/2017 TTE with EF 60% and moderate diastolic dysfunction. Stress test negative. Continue home ASA, BB, statin. Can follow up outpatient with cardiology as previously planned. 3. Diabetes: per hx. uncontrolled. Hgb A1c 9.6%. Continue home long-acting insulin. Strongly encourage dietary and medication compliance. Recommend follow-up with PCP in 1 to 2 weeks. 4. Tobacco use: Current smoker. Cessation advised. Declined nicotine replacement therapy. Qualifiers: Coronary Disease-Associated Artery/Lesion type: [place] artery [place] vs. 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 Atorvastatin [Lipitor] 40 mg PO HS #30 tablet Metoprolol XL (24 HR) Succ [Toprol Xl] 12.5 mg PO DAILY #30 tab.er.24h Home Medications: Esomeprazole Magnesium [Nexium 24Hr] 20 mg PO DAILY 09/18/17 [History] Famotidine [Pepcid] 20 mg PO DAILY 09/18/17 [History] Insulin DETEMIR [Levemir Flextouch] 80 unit SQ BID 09/18/17 [History] Insulin LISPRO [Humalog Kwikpen U-100] 45 unit SQ BID 09/18/17 [History] Aspirin Enteric Coated [Aspirin EC] 81 mg PO DAILY #30 tablet. 09/20/17 [Rx] Atorvastatin [Lipitor] 40 mg PO HS #30 tablet 09/20/17 [Rx] Metoprolol XL (24 HR) Succ [Toprol Xl] 12.5 mg PO DAILY #30 tab.er.24h 09/20/17 [Rx] Allergies/Adverse Reactions: 3 Allergy/AdvReac Type Severity Reaction Status Date / Time No Known Allergies Allergy Verified 12/21/15 22:42 Procedures/tests Complete & Pending: Procedures Performed prior 72 hours Category Date Time Status NM edvin perf SPECT multi [NM] Routine Exams 09/19/17 11:48 Taken EKG [ECG 12 lead ECG] [ECG] Stat Y 09/19/17 09:26 Completed EV carotid duplex imaging BI Routine Y 09/20/17 11:58 Ordered EV echocardiogram Routine Y 09/19/17 21:46 Completed SP exercise nuclear stress Routine Y 09/20/17 07:10 Completed Date of admission: 09/18/17 21:33 Primary care physician: Tenisha Benjamin Discharging clinician: Nidia Colmenares Anticipated date of discharge: 09/20/17 - Patient Status Disposition: Home, Self-Care Condition: Good Functional capacity at discharge: independent ambulation Overall status at discharge: patient is back to baseline - Discharge Instructions Instructions: Syncope (DC), Lightheadedness, T[place]ucker (GEN), Diabetes Mellitus Type 2 in Adults (DC), Coronary Artery Disease (DC), Heart Healthy Diet (DC), Meal Planning with Diabetes Exchanges (DC) Follow Up With: Tenisha Benjamin [Primary Care Provider] - 10/07/17 3:00 pm (This appointment will be with Windy Martinez CNP. ) Bryan Torres MD [Partnered Physician] - Additional Instructions: 1. Please follow-up with your primary care physician as scheduled 2. Please follow up with Electrophysiology 3. Please take all medications as prescribed. Follow diabetic and heart healthy diet - Diet and Activity Activity: ambulate only with your walker Diet: diabetic diet, low fat, low cholesterol Interval History: Seen and examined at bedside. Patient says he feels back to baseline and wants to go home today. Carotid Dopplers were ordered however patient does not want to stay. Says he will have this done with his primary care physician. No further near syncope recurrence. Strongly encouraged dietary and medication compliance. No chest pain, no shortness of breath. Hospital course: See assessment and plan for hospital course - Time Spent with Patient Total time spent providing and/or coordinating discharge services: - Constitutional Vitals: Temp Pulse Resp BP Pulse Ox 98.8 F 85 15 119/79 96 09/20/17 11:56 09/20/17 11:56 09/20/17 11:56 09/20/17 11:56 09/20/17 11:56 General appearance: Present: A&O X 3, morbidly obese - Head Head exam: Present: atraumatic, normocephalic - Eye Eye exam: Present: PERRL, conjuntiva pink, sclera anicteric Pupils: Present: PERRL - Neck Neck exam general surgery: Present: supple, trachea midline. Absent: lymphadenopathy - Respiratory Respiratory exam: Present: CTAB. Absent: accessory muscle use, rales, rhonchi, wheezes - Cardiovascular Cardiovascular exam: Present: RRR, +S1, +S2. Absent: diastolic murmur, gallop, rubs, systolic murmur - GI/Abdominal GI/Abdominal exam: Present: normal bowel sounds, soft, no peritoneal signs. Absent: distended, tenderness - Extremities Exam Extremities exam: Present: warm, radial pulses palpable and symmetrical. Absent : calf tenderness, cyanotic, pedal edema - Neurological Exam Neurological exam: Present: CN II-XII intact, oriented X3, no focal deficits. Absent: pronater drift, facial droop, speech deficit - Skin Skin exam: Present: dry, intact
--- NOTE | 2017-09-21 11:12 | Electrocardiograph Report ---
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
--- NOTE | 2017-09-21 11:33 | Electrocardiograph Report ---
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
== END 2017-09-20 15:30 | disposition home or self-care (01) ==
LOC: 3BNU 18:09 → EMEROO 18:09 → 3BNU 22:12
PROVIDERS: ADMIT Registered Nurse; ATTEND Registered Nurse

== ENCOUNTER 2018-09-16 12:23 | Observation (INO) ==
--- NOTE | 2018-09-16 12:49 | Emergency Department Note ---
Addendum entered and electronically signed by Stefany Davila 09/16/18 17:43: whiting can worker spoke with patient one more time. Patient agrees to stay for one night. Spoke with hospitalist who agrees to admit. Original Note: Disposition Clinical Impression: Dizziness, Impaired ambulation, Hyperglycemia Disposition: Left Against Medical Advice Condition: Fair Time of Disposition: 17:29 Dizziness HPI - General Chief Complaint: ED Dizziness Stated Complaint: dizziness Time Seen by Provider: 09/16/18 12:25 Source: patient, EMS Limitations: no limitations Nursing Notes Reviewed: Yes Vital Signs Reviewed: Yes - History of Present Illness HPI Narrative: 53 year old male presents for dizziness. Patient states it started suddenly yesterday at work. Feels like the room is spinning around him. Dizziness is constant and exacerbated by any movement. Reports vomiting yesterday. States he tried tylenol and ibuprofen last night. Dizziness went away last night, but is back this morning. States he has had same dizziness before, but never this badly. States prior episodes only lasted a few hours and would go away after laying in bed a while. Denies any nausea/vomiting today. Denies chest pain, shortness of breath, muscle weakness, loss of sensation, confusion. Admits runny nose, denies nasal congestion. Patient states he gets a summer cold every year that lasts through the winter. Report history of diabetes type 2 on insulin pump, HTN, and CAD with stent. Reports vaping. - Related Data Home Medications Medication Instructions Recorded Confirmed Esomeprazole Magnesium [Nexium 20 mg PO DAILY 09/18/17 01/21/18 24Hr] Insulin DETEMIR [Levemir Flextouch] 80 unit SQ BID 09/18/17 01/21/18 Insulin LISPRO [Humalog Kwikpen 45 unit SQ BID 09/18/17 01/21/18 U-100] ARIPiprazole [Abilify] 5 mg PO DAILY 10/07/17 01/21/18 Gabapentin [Neurontin] 300 mg PO BID 10/07/17 01/21/18 Metformin HCl [Glucophage] 1,000 mg PO BIDWM 10/07/17 01/21/18 Metoprolol XL (24 HR) Succ [Toprol 25 mg PO DAILY 10/07/17 01/21/18 Xl] Gemfibrozil [Lopid] 600 mg PO BIDWM 01/21/18 01/21/18 Lisinopril [Zestril] 20 mg PO DAILY 01/21/18 01/21/18 Previous Rx's Medication Instructions Recorded Aspirin Enteric Coated [Aspirin EC] 81 mg PO DAILY #30 tablet. 09/20/17 Atorvastatin [Lipitor] 40 mg PO HS #30 tablet 09/20/17 Allergies Allergy/AdvReac Type Severity Reaction Status Date / Time No Known Allergies Allergy Verified 01/21/18 18:09 Constitutional: Denies: fever, chills Eyes: Denies: eye pain, eye discharge ENT ED: Denies: ear pain, throat pain Cardiovascular: Denies: chest pain, palpitations Respiratory: Denies: cough, dyspnea Gastrointestinal: Denies: abdominal pain, nausea Genitourinary: Denies: urgency, dysuria Musculoskeletal: Denies: back pain, neck pain Integumentary: Denies: rash, abrasion Neurological: Denies: headache, weakness Past Medical History - Past Medical History Medical history: Reports: diabetes, hypertension, myocardial infarction Surgical history: Reports: angioplasty/stent, arthroscopy, orthopedic, other Psychiatric history: Reports: no psych history - Social History Smoking Status: Current every day smoker Smokeless Tobacco Status: Yes Alcohol use: Reports: occasionally Drug use: Reports: none Physical Exam - General Limitations: no limitations General appearance: alert, in no apparent distress - Head Head exam: atraumatic, normocephalic - Eye Eye exam: Present: normal appearance, PERRL, EOMI, nystagmus (left horizontal nystagmus ). Absent: conjunctival injection - ENT ENT exam: normal exam, normal oropharynx, mucous membranes moist, TM's normal bilaterally (Left tympanic membrane normal. Cannot visualize right TM due to cerumen impaction. ), normal external ear exam (Significant cerumen is observed bilaterally. No sinus tenderness to palpation. Right nasal passage normal. Left nasal passage narrow (history of broken nose.) ), other - Neck Neck exam: Present: normal inspection - Chest Chest inspection: Present: normal inspection, symmetric chest wall rise - Respiratory Respiratory exam: Present: normal lung sounds bilaterally. Absent: respiratory distress - Cardiovascular Cardiovascular exam: Present: regular rate, normal rhythm - Abdominal Exam Abdominal exam: Present: soft, normal bowel sounds. Absent: Non-Tender, distention, guarding, rebound, rigidity - Extremities Exam Extremities exam: Present: normal inspection. Absent: tenderness, pedal edema, joint swelling - Neurological Exam Neurological exam: Present: alert, oriented X3, CN II-XII intact. Absent: motor sensory deficit - Skin Skin exam: Present: warm, dry, intact, normal color Course Course Narrative: 53 year old male presents for dizziness of sudden onset. Feels like room is s pinning around and is worsened with movement. Has had similar episodes before. Vomited yesterday. Denies nausea/vomiting today. Patient is alert and oriented and hemodynamically stable. On physical exam, dizziness is reproduced with Shonda- Hallpike maneuvers. There is left horizontal nystagmus. There is no focal deficits. Will provide meclizine. - Reevaluation(s) Reevaluation #1: No relief after meclizine. Patient is unsteady and has difficulty ambulating. Will check labwork, EKG, and MRI head. Will provide zofran and IVF. Time: 13:45 Reevaluation #2: CBC is unremarkable. Glucose is elevated at 342. BMP is otherwise unremarkable. MRI is normal. Patient states dizziness is not improved. Patient is informed that we would like to admit him because dizziness is not improved and he cannot ambulate. Patient states that he doesn't want to stay because he already owes the hospital $21,000 and he doesn't want to owe more. Patient was informed that if he leaves, it would be against medical advice. He was encouraged to stay and informed of risks of leaving AMA, including fall and injury. Patient still states he wants to leave. whiting can worker spoke with patient. Patient still wants to leave. He is already on HCAP, but is responsible for 40% of hospital bill. He just changed jobs so he does not qualify for insurance yet. He does not qualify for Medicaid or Medicare. He is also worried about losing his job. And he wants to be able to smoke, states that nicotine patches are not enough. Attending Dr. Cedeño spoke with patient. Patient still insists on leaving. Patient will leave AMA. Time: 17:28 Vital Signs Temperature 96.8 F L 09/16/18 12:31 Pulse Rate 76 09/16/18 12:31 Respiratory Rate 16 09/16/18 12:31 Blood Pressure 145/128 09/16/18 12:31 O2 Sat by Pulse Oximetry 98 09/16/18 12:31 Temperature 96.8 F L 09/16/18 12:31 Pulse Rate 76 09/16/18 12:31 Respiratory Rate 16 09/16/18 12:31 Blood Pressure 145/128 09/16/18 12:31 O2 Sat by Pulse Oximetry 98 09/16/18 12:31 Oxygen Delivery Oxygen Delivery Room Air Dizziness - MDM Narrative Medical decision making narrative: Brain MRI 09/16/18 13:43 IMPRESSION: No acute abnormality. D/ / Flex Soliz MD / Flex Soliz MD Interpreting Provider: Flex Soliz MD - Medical Records Medical records reviewed: Yes I reviewed the patient's medical records. - Lab Data Lab results reviewed: Yes I reviewed the patient's lab results. Result diagrams: 09/16/18 13:51 09/16/18 13:51 - Radiology Data Radiology results reviewed: Yes I reviewed the patient's radiology results. - EKG Data EKG attestation: Yes I reviewed and interpreted this EKG. EKG results narrative: EKG 09/16/18 12:33. Sinus rhythm. Heart rate 77. No ST segment elevation or depression. No significant change from prior EKG 01/21/18. Attestation Statement - Attestation Attestation: I examined this patient and my medical decision-making was reviewed with the Resident Physician, Dr. Davila. I agree with the documented findings, disposition and treatment plan as described except to the extent set forth below. Patient is a 53-year-old white male with history of diabetes who presents to the permit today with complaints of room spinning dizziness that started acutely yesterday. Patient denies any associated headaches or visual changes, no slurred speech or focal neuro deficits and no history of falls or trauma. Patient states yesterday upon time of onset he had some nausea and one episode of nonbloody nonbilious emesis and the only thing that would help the symptoms as if he would lie totally flattening the dizziness would improve significantly. Symptoms are worse with positional changes of head turning and patient reports having difficulty ambulating secondary to the severity of the dizziness. Patient denies any chest pain pressure or heaviness, no shortness of breath, no diaphoresis, no abdominal pain or flank pain no other associated symptoms today. I agree with physical exam findings as documented. Vital signs are stable EKG showed a sinus rhythm with no acute ischemia. Patient's lab evaluation with the exception of an elevated blood sugar without acidosis was within normal limits. Patient underwent MRI imaging which was negative for any acute abnormalities. Patient's neurologic exam is been stable over time he has had minimal to no improvement despite multiple rounds of medications for the dizziness. Although patient has not minute first to stay in the hospital we had social worker aide speak with him at length at bedside as well as myself and patient agrees to admission for further evaluation and management due to severity of symptoms. Case discussed with hospitalist who accepted patient for admission.
[2018-09-16] MEDS ORDERED: diazePAM 2 MG TABLET PO STA (12:54)
[2018-09-16] MEDS ORDERED: Ondansetron 4 MG/2 ML VIAL IVP ONE (13:44)
[2018-09-16] MEDS ORDERED: 0.9 % Sodium Chloride 1,000 ML IVC ONE (13:44)
[2018-09-16 14:08] LABS: Basophils % 0.6 %; Eosinophils % 0.6 %; Hematocrit 36.1 % (37.5-50.1); Hemoglobin 12.8 g/dL (12.9-16.9); Immature Granulocytes % 0.4 % (0-4); Lymphocytes # 1.1 K/mcL (0.6-4.6); Lymphocytes % 21.2 %; Mean Corpuscular HGB Conc 35.5 g/dL (31.6-35.5); Mean Corpuscular Hemoglobin 30.5 pg (28.0-33.3); Mean Corpuscular Volume 86.2 fL (83.0-100.0); Mean Platelet Volume 8.6 fL (9.4-12.4); Monocytes # 0.3 K/mcL (0.0-1.3); Monocytes % 5.9 %; Neutrophils # 3.6 K/mcL (1.6-8.9); Platelet Count 250 K/mcL (140-400); Red Blood Count 4.19 M/mcL (4.19-5.50); Red Cell Distribution Width 12.7 % (11.5-14.5); Segmented Neutrophils % 71.3 %
[2018-09-16 14:33] LABS: BUN/Creatinine Ratio 18 (6-26); Blood Urea Nitrogen 13 mg/dL (6-20); Calcium 8.9 mg/dL (8.6-10.3); Carbon Dioxide 24 mEq/L (23-29); Chloride 101 mEq/L (98-107); Glucose 342 mg/dL (70-105); Osmolality,Calculated 294 (280-300); Potassium 3.6 mEq/L (3.5-5.1); Sodium 135 mEq/L (136-145); eGFR For Non-African Americans > 60 (> 60)
[2018-09-16] MEDS ORDERED: diazePAM 10 MG/2 ML SYRINGE IVP STA (16:45)
--- NOTE | 2018-09-16 18:21 | Internal Med History&Physical ---
Date of Encounter: 09/16/18 Time of Encounter: 18:17 Internal Medicine - H&P: HPI Chief complaint: Dizziness Admitted From: Home Plans for Post Hospital Care: Home History of present illness: Mr. Shook is a 53 year old male with past medical hx of HTN, DM type II , CAD, ND x 2, s/p stents, Brugada syndrome, former smoker who now vaps, who presents with dizziness that started yesterday. States symptoms progressively worse today. States he was having double vision yesterday while he was at work. He does wear prescription glasses. States he is near sighted and last eye exam was about 2 years ago. Pt denies difficulty swallowing, speaking, but does report trouble walking. Denies passing out. Pt denies CP or SOB. Denies fever or chills. Pt denies any dark red bright red or bloody stools. Pt currently has a lop recorder and does have history of Brugada syndrome. Pt states he was given Antivert in ED but it did not help. Mother had hx of ND x 2 ad from 2nd ND. Father had CVA x 4. In ED WBC 4.3, Hgb 12.3, hct 35.8, plt 230. Na 130, K 3.4, BUN 10, Cr 0.59. Mag 1.7 LDL 139, HDL 47, triglycerides 211, cholesterol 228. EKG-12 L showing SR Troponin <0.03 MRI brain negative. Past Med Surg Social Fam HX - Past Medical History Medical history: diabetes, hypertension, myocardial infarction Psychiatric history: no psych history - Past Surgical History Surgical History: angioplasty/stent, arthroscopy, orthopedic, other Additional surgical history: rotator cuff. implanted heart monitor - Social History Smoking Status: Current every day smoker Smokeless Tobacco Status: Yes Alcohol use: occasionally Drug use: none - Family History Mother Living Status: Hx Family Cardiac Disorders: Yes Father Living Status: Hx Family Cardiac Disorders: Yes Internal Medicine - H&P: Meds No Known Home Drugs 09/17/18 [History] Allergy/AdvReac Type Severity Reaction Status Date / Time No Known Allergies Allergy Verified 09/17/18 10:03 All Systems PM: A 10-system review of systems was performed and is negative for pertinent findings except as documented above in the HPI. - Constitutional Vitals: Temp Pulse Resp BP Pulse Ox 96.8 F L 70 16 104/71 97 09/16/18 12:31 09/16/18 16:35 09/16/18 16:35 09/16/18 16:35 09/16/18 16:35 General appearance: Present: A&O X 3, no acute distress Exam: . - Head Head exam: Present: atraumatic, normocephalic - Eye Eye exam: Present: PERRL, conjuntiva pink, sclera anicteric Pupils: Present: PERRL - Neck Neck exam general surgery: Present: supple, trachea midline. Absent: lymphadenopathy - Respiratory Respiratory exam: Present: CTAB. Absent: accessory muscle use, rales, rhonchi, wheezes - Cardiovascular Cardiovascular exam: Present: RRR, +S1, +S2. Absent: diastolic murmur, gallop, rubs, systolic murmur - GI/Abdominal GI/Abdominal exam: Present: normal bowel sounds, soft, no peritoneal signs. Absent: distended, tenderness - Extremities Exam Extremities exam: Present: warm, radial pulses palpable and symmetrical. Absent: calf tenderness, cyanotic, pedal edema - Neurological Exam Neurological exam: Present: CN II-XII intact, oriented X3, no focal deficits. Absent: pronater drift, facial droop, speech deficit - Skin Skin exam: Present: dry, intact Internal Med - H&P Results - Labs CBC & Chem 7: 09/17/18 00:21 09/17/18 00:21 Labs: Short CBC 09/16/18 Range/Units 13:51 WBC 5.1 (4.3-11.1) K/mcL Hgb 12.8 L (12.9-16.9) g/dL Hct 36.1 L (37.5-50.1) % Plt Count 250 (140-400) K/mcL Neutrophils # 3.6 (1.6-8.9) K/mcL BMP 09/16/18 13:51 Sodium 135 L Potassium 3.6 Chloride 101 Carbon Dioxide 24 BUN 13 Creatinine 0.72 Glucose 342 H Calcium 8.9 - Impressions ITS Impressions Brain MRI 09/16/18 13:43 IMPRESSION: No acute abnormality. D/ / Flex Soliz MD / Flex Soliz MD Interpreting Provider: Flex Soliz MD - Assessment and plan (1) Vertigo Current Visit: No Status: Acute Assessment and plan: History of Brugada syndrome type III. Pt's girlfriend at bedside estates it was diagnosed by Dr. Augustin Joshua. Pt currently has a loop recorder. Has not been to any of his physicians in a while. Last PCP visit was about one year ago. States he has not had insurance. Will check echo in am and consult cardiology for possible loop recorder interrogation. (2) Brugada syndrome Current Visit: No Status: Acute Assessment and plan: Pt known to Dr. Colon, who diagnosed him with above syndrome. He does have a loop recorder. Will order echo and will discuss with cardiology in am for possible loop recorder interrogation. (3) CAD (coronary artery disease) Current Visit: No Status: Acute Assessment and plan: CAD hx of ND x 2 and s/p stents. Pt states he has not taken ASA, statin , and Lopressor in about one year. Will resume Atorvastatin and Aspirin. He states he takes his girlfriend's (GF) lisinopril and has been taking it for about 4 months. Prior to that he had not taken his lisinopril in about 6 months. States his GF's dose is less than his. According to prior office visit to PCP 2016, pt had been on Lisinopril 20 mg PO daily and his GF's dose is 5 mg PO dialy. Qualifiers: Coronary Disease-Associated Artery/Lesion type: [place] artery [place] vs. transplanted heart: [place] heart Associated angina: without angina Qualified Code(s): I25.10 - Atherosclerotic heart disease of [place] coronary artery without angina pectoris (4) Tobacco abuse Current Visit: No Status: Acute Assessment and plan: Cessation strongly advised. Pt states he has not smoked a cigarette in 4 years but he Vaps. (5) HTN (hypertension) Current Visit: Yes Status: Acute Assessment and plan: Resuming Lisinopril and on lopressor XL. Will clarify his dose. Qualifiers: Qualified Code(s): I10 - Essential (primary) hypertension (6) Medical non-compliance Current Visit: Yes Status: Acute Assessment and plan: Pt has reportedly not been compliant with his home medications. (7) Type II diabetes mellitus Current Visit: Yes Status: Acute Assessment and plan: Pt states he is on Insulin but has not taken his Insulin in about 1 yr. He has been taking his GF's Dad's metformin, of unknown expiration date, for about 4 months. Qualifiers: Qualified Code(s): E11.9 - Type 2 diabetes mellitus without complications; Z79.4 - halfway (current) use of insulin (8) Diabetic neuropathy Current Visit: Yes Status: Acute Assessment and plan: Pt has not taken his gabapentin in months. Will clarify his dose. Qualifiers: Qualified Code(s): E08.41 - Diabetes mellitus due to underlying condition with diabetic mononeuropathy - Time Spent With Patient Total time spent is greater than 50% in coordination of care (as documented) at patient's floor/unit and/or counseling patient: 25 - 35 minutes
[2018-09-16] MEDS ORDERED: Naloxone 0.4 MG/ML INJ IVP PRN (18:27)
--- NOTE | 2018-09-16 18:30 | Electrocardiograph Report ---
[place] [facility] Test Date: 2018-09-16 Pat Name: Leon Shook Department: EXAM7 Room: [facility] Gender: M Side Stapler: : 1965 Requested By: Trupti Miles Order Number: [id number] Reading MD: Phoenix Jimenez Measurements Intervals [place] Rate: 77 P: 85 AR: 139 QRS: 70 QRSD: 101 T: 73 QT: 429 QTc: 486 Interpretive Statements Sinus rhythm RSR' in V1 or V2, probably normal variant Borderline prolonged QT interval Electronically Signed On 09-16-2018 18:29:11 EDT by Phoenix Jimenez
[2018-09-16] MEDS ORDERED: D5% in Water 1,000 ML IVC PRN (18:52)
[2018-09-16] MEDS ORDERED: *HR* Dextrose 50 % in Water (Syg) 50 ML SYRINGE IVP PRN (18:52)
[2018-09-16] MEDS ORDERED: Dextrose Gel 15 GM/37.5 ML TUBE PO PRN ×2 (18:52)
[2018-09-16 19:52] LABS: Estimated Average Glucose 312 mg/dl; Hemoglobin A1C 12.5 %
[2018-09-16] MEDS: 0.9 % Sodium Chloride 1,000 ML IVC SCH (20:29)
[2018-09-16] MEDS: Gabapentin 300 MG CAPSULE PO SCH (20:29)
[2018-09-16] MEDS: Acetaminophen 325 MG TABLET PO PRN (20:29)
[2018-09-16] MEDS: ARIPiprazole 5 MG TABLET PO SCH (20:29)
[2018-09-16] MEDS: Insulin DETEMIR 100 UNIT/ML X5UNITS SQ SCH (20:30)
[2018-09-17 00:51] LABS: BUN/Creatinine Ratio 17 (6-26); Blood Urea Nitrogen 10 mg/dL (6-20); Calcium 8.4 mg/dL (8.6-10.3); Carbon Dioxide 27 mEq/L (23-29); Chloride 106 mEq/L (98-107); Chol/HDL Ratio 4.9 (0-4.9); Cholesterol 228 mg/dL (< 200); Glucose 232 mg/dL (70-105); HDL Cholesterol 47 mg/dL (40-59); LDL Cholesterol,Calculated 139 mg/dL (0-99); Osmolality,Calculated 294 (280-300); Potassium 3.4 mEq/L (3.5-5.1); Sodium 139 mEq/L (136-145); Triglycerides 211 mg/dL (< 150); eGFR For Non-African Americans > 60 (> 60)
[2018-09-17 01:21] LABS: Basophils % 0.7 %; Eosinophils # 0.1 K/mcL (0.0-0.6); Eosinophils % 2.1 %; Hematocrit 35.8 % (37.5-50.1); Hemoglobin 12.3 g/dL (12.9-16.9); Immature Granulocytes % 0.5 % (0-4); Lymphocytes # 1.6 K/mcL (0.6-4.6); Lymphocytes % 37.4 %; Mean Corpuscular HGB Conc 34.4 g/dL (31.6-35.5); Mean Corpuscular Volume 87.3 fL (83.0-100.0); Mean Platelet Volume 8.6 fL (9.4-12.4); Monocytes # 0.3 K/mcL (0.0-1.3); Monocytes % 7.2 %; Neutrophils # 2.3 K/mcL (1.6-8.9); Platelet Count 230 K/mcL (140-400); Red Cell Distribution Width 12.6 % (11.5-14.5); Segmented Neutrophils % 52.1 %
[2018-09-17] MEDS: Insulin LISPRO 300 UNITS/3 ML VIAL SQ SCH ×3 (07:51→18:03)
[2018-09-17] MEDS: Gabapentin 300 MG CAPSULE PO SCH ×2 (07:57→23:05)
[2018-09-17] MEDS: *HR* Metformin 500 MG TABLET PO SCH ×2 (07:58→18:57)
[2018-09-17] MEDS: Aspirin 81 MG TAB.CHEW PO SCH (07:58)
[2018-09-17] MEDS: Lisinopril 20 MG TABLET PO SCH (07:58)
[2018-09-17] MEDS: Insulin DETEMIR 100 UNIT/ML X5UNITS SQ SCH ×2 (07:59→21:12)
[2018-09-17] MEDS ORDERED: Perflutren Lipid Microsphere 1.3 ML in 0.9 % Sodium Chloride 8.7 ML IVP ONE (09:20)
--- NOTE | 2018-09-17 10:13 | Event Note ---
Date of Encounter: 09/17/18 Time of Encounter: 10:11 - Cardiology Event Note Patient reported dizziness that started on Saturday. Has LOOP recorder, follows with EP Dr.John Torres. [employer] LOOP recorder checked and no arrythmias noted. Normal device check. TTE noted pending. Cardiology will sign off, recommend patient conitnue to follow with EP Dr.John Torres. Please re-consult if needed. Thank you.
[2018-09-17 11:11] LABS: Magnesium 1.7 mg/dL (1.6-2.6)
[2018-09-17] MEDS: 0.9 % Sodium Chloride 1,000 ML IVC SCH (11:16)
[2018-09-17 11:25] LABS: Thyroid Stimulating Hormone 0.666 mcIU/mL (0.340-5.600)
--- NOTE | 2018-09-17 12:43 | Internal Med Progress Note ---
Hospitalist Progress Note - Encounter Date of Encounter: 09/17/18 Time of Encounter: 12:39 - Subjective Interval History: Pt reports that he has not taken his medications due to lack of insurance. He also reports that he has not seen his PCP of any physician in about a year. He denies chest pain of SOB. HE denies fever, chills, N/V or diarrhea. He denies abdominal pain. He still reports feeling dizzy and having spinning sensation. - Exam Vitals: Temp Pulse Resp BP Pulse Ox 98.0 F 60 15 104/67 96 09/17/18 10:59 09/17/18 10:59 09/17/18 10:59 09/17/18 10:59 09/17/18 10:59 Exam: General appearance: Present: A&O X 3, no acute distress Exam: - Head Head exam: Present: atraumatic, normocephalic - Eye Eye exam: Present: PERRL, conjuntiva pink, sclera anicteric Pupils: Present: PERRL - Neck Neck exam general surgery: Present: supple, trachea midline. Absent: lymphadenopathy - Respiratory Respiratory exam: Present: CTAB. Absent: accessory muscle use, rales, rhonchi, wheezes - Cardiovascular Cardiovascular exam: Present: RRR, +S1, +S2, Positive systolic murmur. Absent: diastolic murmur, gallop, rubs, systolic murmur - GI/Abdominal GI/Abdominal exam: Present: normal bowel sounds, soft, no peritoneal signs. Absent: distended, tenderness - Extremities Exam Extremities exam: Present: warm, radial pulses palpable and symmetrical. Absent: calf tenderness, cyanotic, pedal edema - Neurological Exam Neurological exam: Present: CN II-XII intact, oriented X3, no focal deficits. Absent: pronater drift, facial droop, speech deficit - Skin Skin exam: Present: dry, intact . - Assessment and Plan (1) Vertigo Current Visit: No Status: Acute Assessment and Plan: Pt complaining of blurred vision, spinning sensation and difficulty ambulating. History of Brugada syndrome type III. MRI brain ordered in the ED was negative. Brugada diagnosed by Dr. Augustin Joshua. Pt currently has a loop recorder. Has not been to any of his physicians in a while. Last PCP visit was about one year ago. States he has not had insurance. Consulted cardiology for possible loop recorder interrogation. Echo some this am showed EF 55-60% and normal LV chamber size, wall thickness and function. PFO with right to left shunt with agitated saline contrast. Echo EV/EV echocardiogram Impressions: LVEF 55-60%. Normal LV chamber size, wall thickness and function. Normal left ventricular diastolic function. Normal right ventricular structure and function. PFO with right to left shunt with agitated saline contrast. No significant valvular dysfunction. No evidence of pulmonary hypertension. Left Ventricular Wall Motion: Rest Echo Findings All wall segments showed normal motion. MRI brain MR/MR head/brain wo con IMPRESSION: No acute abnormality. (2) Brugada syndrome Current Visit: No Status: Acute Assessment and Plan: Pt known to Dr. Colon, who per pt, diagnosed him with above named syndrome. He does have a loop recorder. Will order echo and will discuss with cardiology i n am for possible loop recorder interrogation. Echo some this am showed EF 55-60% and normal LV chamber size, wall thickness and function. PFO with right to left shunt with agitated saline contrast. Echo EV/EV echocardiogram Impressions: LVEF 55-60%. Normal LV chamber size, wall thickness and function. Normal left ventricular diastolic function. Normal right ventricular structure and function. PFO with right to left shunt with agitated saline contrast. No significant valvular dysfunction. No evidence of pulmonary hypertension. (3) CAD (coronary artery disease) Current Visit: No Status: Acute Assessment and Plan: CAD hx of PA x 2 and s/p stents. Pt states he has not taken ASA, statin , and Lopressor in about one year. Will resume Atorvastatin and Aspirin. He states he takes his girlfriend's (GF) lisinopril and has been taking it for about 4 months. Prior to that he had not taken his lisinopril in about 6 months. States his GF's dose is less than his. According to prior office visit to PCP 2017, pt had been on Lisinopril 20 mg PO daily and his GF's dose is 5 mg PO dialy. (4) Tobacco abuse Current Visit: No Status: Acute Assessment and Plan: Cessation strongly advised. Pt states he has not smoked a cigarette in 4 years but he Vaps. (5) HTN (hypertension) Current Visit: Yes Status: Acute Assessment and Plan: Resuming Lisinopril and on lopressor XL. Will clarify his dose. (6) Medical non-compliance Current Visit: Yes Status: Acute Assessment and Plan: Pt has reportedly not been compliant with his home medications. (7) Type II diabetes mellitus Current Visit: Yes Status: Acute Assessment and Plan: Pt states he is on Insulin but has not taken his Insulin in about 1 yr. He has been taking his GF's Dad's metformin, of unknown expiration date, for about 4 months. (8) Diabetic neuropathy Current Visit: Yes Status: Acute Assessment and Plan: Pt has not taken his gabapentin in months. Will clarify his dose. - Time Spent with Patient Total time spent is greater than 50% in coordination of care (as documented) at patient's floor/unit and/or counseling patient: Internal Medicine: Result - Labs CBC & Chem 7: 09/17/18 00:21 09/17/18 00:21 Labs: Short CBC 09/16/18 09/17/18 Range/Units 13:51 00:21 WBC 5.1 4.3 (4.3-11.1) K/mcL Hgb 12.8 L 12.3 L (12.9-16.9) g/dL Hct 36.1 L 35.8 L (37.5-50.1) % Plt Count 250 230 (140-400) K/mcL Neutrophils # 3.6 2.3 (1.6-8.9) K/mcL BMP 09/16/18 09/17/18 13:51 00:21 Sodium 135 L 139 Potassium 3.6 3.4 L Chloride 101 106 Carbon Dioxide 24 27 BUN 13 10 Creatinine 0.72 0.59 L Glucose 342 H 232 H Calcium 8.9 8.4 L Cardiac Enzymes 09/16/18 09/17/18 09/17/18 Range/Units 19:12 00:21 06:12 Troponin I < 0.03 < 0.03 < 0.03 (< 0.04) ng/mL - ABG Interpretation ABG results: PT/INR, D-dimer D-Dimer 357 ng/mLFEU (0-500) 09/16/18 18:18 - Impressions Impressions Brain MRI 09/16/18 13:43 IMPRESSION: No acute abnormality. D/ / Flex Soliz MD / Flex Soliz MD Interpreting Provider: Flex Soliz MD Echocardiogram 09/17/18 18:26 Impressions: LVEF 55-60%. Normal LV chamber size, wall thickness and function. Normal left ventricular diastolic function. Normal right ventricular structure and function. PFO with right to left shunt with agitated saline contrast. No significant valvular dysfunction. No evidence of pulmonary hypertension. Left Ventricular Wall Motion: Rest Echo Findings All wall segments showed normal motion. Findings: Study Quality * Technically adequate exam. ECG Findings * Normal sinus rhythm. Left Ventricle * LVEF 55-60%. * Normal LV chamber size, wall thickness and function. * Normal left ventricular diastolic function. Right Ventricle * Normal right ventricular structure and function. Left Atrium * Normal left atrial size. Right Atrium * Normal right atrial size. Interatrial Septum * PFO with right to left shunt with agitated saline contrast. Aortic Valve * Trileaflet aortic valve. * Normal aortic valve structure. * No aortic regurgitation. * No aortic stenosis. Mitral Valve * Normal mitral valve structure. * No mitral regurgitation. * No mitral stenosis. Tricuspid Valve * Normal tricuspid valve structure. * No tricuspid regurgitation. * No tricuspid stenosis. * No evidence of pulmonary hypertension. Pulmonic Valve * Normal pulmonic valve structure. * No pulmonic regurgitation. Aorta * Normally sized aortic root. Pericardium * The pericardium appears normal. IVC * Normal IVC dimensions and inspiratory collapse. Pulmonary Artery * Normal visualized portions of the main pulmonary artery. Consult Discharge Plan - Plan Referrals: Tenisha Benjamin, [facility] [Primary Care Provider] - (3) CAD (coronary artery disease) Qualifiers: Coronary Disease-Associated Artery/Lesion type: [place] artery [place] vs. transplanted heart: [place] heart Associated angina: without angina Qualified Code(s): I25.10 - Atherosclerotic heart disease of [place] coronary artery without angina pectoris (5) HTN (hypertension) Qualifiers: Qualified Code(s): I10 - Essential (primary) hypertension (7) Type II diabetes mellitus Qualifiers: Qualified Code(s): E11.9 - Type 2 diabetes mellitus without complications; Z79.4 - assisted (current) use of insulin (8) Diabetic neuropathy Qualifiers: Qualified Code(s): E08.41 - Diabetes mellitus due to underlying condition with diabetic mononeuropathy
[2018-09-17] MEDS ORDERED: Gadolinium Contrast Agent (WT Based) IV PRN (13:01)
[2018-09-17] MEDS: Acetaminophen 325 MG TABLET PO PRN (18:25)
[2018-09-17] MEDS: ARIPiprazole 5 MG TABLET PO SCH (21:12)
[2018-09-18] MEDS: Insulin DETEMIR 100 UNIT/ML X5UNITS SQ SCH ×2 (08:19→20:59)
[2018-09-18] MEDS: Insulin LISPRO 300 UNITS/3 ML VIAL SQ SCH ×3 (08:19→17:25)
[2018-09-18] MEDS: Acetaminophen 325 MG TABLET PO PRN ×2 (08:22→17:30)
--- NOTE | 2018-09-18 09:52 | Internal Med Progress Note ---
Hospitalist Progress Note - Encounter Date of Encounter: 09/18/18 Time of Encounter: 17:17 - Exam Vitals: Temp Pulse Resp BP Pulse Ox 98.5 F 84 16 132/79 99 09/18/18 04:27 09/18/18 08:19 09/18/18 08:19 09/18/18 08:19 09/18/18 08:19 Exam: PHYSICAL EXAMINATION: GENERAL: Alert and oriented 3 HEENT: Head is normocephalic and atraumatic. Extraocular muscles are intact. Pupils are equal, round, and reactive to light and accommodation. NECK: Supple. No carotid bruits. No lymphadenopathy or thyromegaly. LUNGS: Clear to auscultation B/L AP and L. HEART: Regular rate and rhythm, S1, S2 without murmur. ABDOMEN: Soft, nontender, and nondistended. Positive bowel sounds. No hepatosplenomegaly was noted. EXTREMITIES: Without any cyanosis, clubbing, rash, lesions or edema. NEUROLOGIC: Cranial nerves II through XII are grossly intact. PSYCHIATRIC: Appropriate affect, denies SI/HI, without agitation or anxiety SKIN: No ulceration or induration present. - Assessment and Plan (1) Brugada syndrome Current Visit: No Status: Acute Assessment and Plan: Continue to follow outpatient with Dr. Alcantara and Dr. Bryan Torres Continue cardiac medications No events on telemetry overnight (2) Vertigo Current Visit: No Status: Acute Assessment and Plan: Pt complaining of blurred vision, spinning sensation and difficulty ambulating. History of Brugada syndrome type III. follows with Dr. Alcantara cardiology for this. MRI brain ordered in the ED was negative MRA neck and head without flow limiting stenosis TTE with the following findings-LVEF 55-60%, normal LV chamber size wall thickness and function, normal LV diastolic function, normal RV structure and function, PFO with lystv-ly-gnjf shunt with agitated saline. No significant valvular dysfunction, no evidence of pulmonary HTN This has been D/W cardiology who recommends aspirin and outpatient follow-up. Per cardiology that do not recommend transfer to tertiary care facility for intervention. Additionally, do not recommend additional anticoagulation at this time. Pt currently has a loop recorder. Has not been to any of his physicians in a while; will need outpatient follow-up for reevaluation of loop recorder Consulted cardiology for possible loop recorder interrogation--interrogation reveals no arrhythmias with normal device check. 09/18/18--continues to have vertigo worse with activity. Denies any shortness of breath with this. Vertigo is likely caused by right to left shunting with PFO. Patient is to have outpatient follow-up with cardiology for continued monitoring. The patient reports that all the vertigo is still present is improving. Some of this may also be related to him inappropriately taking anti- HTN medications. He was hypotensive early throughout his stay. Hypotension resolved when anti-HTN medications held. Continue to monitor him overnight, continue holding anti-HTN medications to see if dizziness improves. -PT/OT for gait assessment and recommendations May benefit from outpatient vestibular therapy director client services seeing in consult to assess to see planning Obtain cardio follow-up upon discharge Consider referral to tertiary facility for evaluation of PFO (3) CAD (coronary artery disease) Current Visit: No Status: Acute Assessment and Plan: CAD hx of [place] x 2 and s/p stents. Patient is noncompliant with aspirin, statin and anti-HTN medication regimen. Noncompliance due to lack of insurance. It appears that the patient has been prescribed lisinopril 20 mg daily, however he reports that he has not taken this in approximately 6 months. He does report that he takes his girlfriend's lisinopril at times a dose of 5 mg daily. Education provided strongly discouraging this activity and encouraging medication compliance. Atorvastatin and Aspirin have been resumed as well as lisinopril; he will receive prescriptions for these at discharge. With hold anti-HTN medication at this juliocesar e as the patient has had some degree of hypotension throughout stay. Blood pressure improved this morning with holding anti-HTN medication yesterday. Continue to monitor and resume as necessary. Patient will need follow-up appointment with cardiology at discharge. (4) Tobacco abuse Current Visit: No Status: Acute Assessment and Plan: Reports that he no longer smokes tobacco but he does continue to fade. Cessation strongly advised. (5) HTN (hypertension) Current Visit: Yes Status: Acute Assessment and Plan: History of hypertension, BP stable this morning. Patient has had episodes of hypertension throughout stay and antihypertensives have been held. Continue to hold antihypertensive medication at this time and monitor. Resume anti-HTN medication when appropriate (6) Medical non-compliance Current Visit: Yes Status: Acute Assessment and Plan: Patient reported noncompliance with medication regimen (7) Type II diabetes mellitus Current Visit: Yes Status: Acute Assessment and Plan: Prescribed insulin but reports he has not taken his insulin for approximately one year. Patient appears to be very noncompliant with diabetic medication regimen. He does report however that he takes basal insulin 80 units twice a day as well as metformin in addition to this. However upon further confirmation his girlfriend notes that he is not prescribed metformin and instead is taking metformin from a family member for approximately the last 4 months. He was given education is not appropriate. 09/18/18--Continue sliding scale insulin coverage, continue basal coverage. I will hold metformin for now. He does not take this at home and is not prescribed metformin. Continue with AC/HS Accu-Chek and adjust coverage as needed (8) Diabetic neuropathy Current Visit: Yes Status: Acute Assessment and Plan: Noncompliant with medication regimen. Pt has not taken his gabapentin in months. Gabapentin resumed at a dose of 300 mg by mouth twice a day - Time Spent with Patient Total time spent is greater than 50% in coordination of care (as documented) at patient's floor/unit and/or counseling patient: less than 15 minutes Plan of Care Discussed with: patient Internal Medicine: Result - Labs CBC & Chem 7: 09/17/18 00:21 09/17/18 00:21 - ABG Interpretation ABG results: PT/INR, D-dimer D-Dimer 357 ng/mLFEU (0-500) 09/16/18 18:18 - Impressions Impressions Head MRA 09/17/18 00:00 IMPRESSION: No flow limiting stenosis or branch occlusion detected within the head or neck D/ / Virgilio Morton MD / Virgilio Morton MD Interpreting Provider: Virgilio Morton MD Chest X-Ray 09/17/18 12:28 IMPRESSION: 1. Scarring in the left perihilar region, unchanged. 2. No acute cardiopulmonary disease. D/ / Rosalio Angel MD / Rosalio Angel MD Interpreting Provider: Rosalio Angel MD Neck MRA 09/17/18 13:01 IMPRESSION: No flow limiting stenosis or branch occlusion detected within the head or neck D/ / Virgilio Morton MD / Virgilio Morton MD Interpreting Provider: Virgilio Morton MD Echocardiogram 09/17/18 18:26 Impressions: LVEF 55-60%. Normal LV chamber size, wall thickness and function. Normal left ventricular diastolic function. Normal right ventricular structure and function. PFO with right to left shunt with agitated saline contrast. No significant valvular dysfunction. No evidence of pulmonary hypertension. Left Ventricular Wall Motion: Rest Echo Findings All wall segments showed normal motion. Findings: Study Quality * Technically adequate exam. ECG Findings * Normal sinus rhythm. Left Ventricle * LVEF 55-60%. * Normal LV chamber size, wall thickness and function. * Normal left ventricular diastolic function. Right Ventricle * Normal right ventricular structure and function. Left Atrium * Normal left atrial size. Right Atrium * Normal right atrial size. Interatrial Septum * PFO with right to left shunt with agitated saline contrast. Aortic Valve * Trileaflet aortic valve. * Normal aortic valve structure. * No aortic regurgitation. * No aortic stenosis. Mitral Valve * Normal mitral valve structure. * No mitral regurgitation. * No mitral stenosis. Tricuspid Valve * Normal tricuspid valve structure. * No tricuspid regurgitation. * No tricuspid stenosis. * No evidence of pulmonary hypertension. Pulmonic Valve * Normal pulmonic valve structure. * No pulmonic regurgitation. Aorta * Normally sized aortic root. Pericardium * The pericardium appears normal. IVC * Normal IVC dimensions and inspiratory collapse. Pulmonary Artery * Normal visualized portions of the main pulmonary artery. Consult Discharge Plan - Plan Referrals: Tenisha Benjamin, LOGISTICS OPERATIONS MANAGER [Primary Care Provider] - (3) CAD (coronary artery disease) Qualifiers: Coronary Disease-Associated Artery/Lesion type: [place] artery [place] vs. transplanted heart: [place] heart Associated angina: without angina Qualified Code(s): I25.10 - Atherosclerotic heart disease of [place] coronary artery without angina pectoris (5) HTN (hypertension) Qualifiers: Qualified Code(s): I10 - Essential (primary) hypertension (7) Type II diabetes mellitus Qualifiers: Qualified Code(s): E11.9 - Type 2 diabetes mellitus without complications; Z79.4 - USP (current) use of insulin (8) Diabetic neuropathy Qualifiers: Qualified Code(s): E08.41 - Diabetes mellitus due to underlying condition with diabetic mononeuropathy
[2018-09-18] MEDS: Aspirin 81 MG TAB.CHEW PO SCH (11:18)
[2018-09-18] MEDS: Lisinopril 20 MG TABLET PO SCH (11:19)
[2018-09-18] MEDS: Gabapentin 300 MG CAPSULE PO SCH ×2 (11:19→20:59)
[2018-09-18] MEDS: ARIPiprazole 5 MG TABLET PO SCH (20:59)
--- NOTE | 2018-09-18 21:28 | Electrocardiograph Report ---
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
[2018-09-19] MEDS: Insulin LISPRO 300 UNITS/3 ML VIAL SQ SCH ×2 (07:33→12:42)
[2018-09-19] MEDS: Insulin DETEMIR 100 UNIT/ML X5UNITS SQ SCH (07:40)
[2018-09-19] MEDS: Gabapentin 300 MG CAPSULE PO SCH (08:20)
[2018-09-19] MEDS: Aspirin 81 MG TAB.CHEW PO SCH (08:20)
--- NOTE | 2018-09-19 11:14 | Internal Med Progress Note ---
Hospitalist Progress Note - Encounter Date of Encounter: 09/19/18 Time of Encounter: 11:09 - Subjective Interval History: No acute changes overnight. Patient reporting the dizziness is improving. He is able to ambulate further distance with minimal assistance without feeling dizzy. - Exam Vitals: Temp Pulse Resp BP Pulse Ox 98.3 F 84 18 131/79 95 09/19/18 07:06 09/19/18 07:06 09/19/18 07:06 09/19/18 07:06 09/19/18 07:06 Exam: PHYSICAL EXAMINATION: GENERAL: Alert and oriented 3 HEENT: Head is normocephalic and atraumatic. Extraocular muscles are intact. Pupils are equal, round, and reactive to light and accommodation. NECK: Supple. No carotid bruits. No lymphadenopathy or thyromegaly. LUNGS: Clear to auscultation B/L AP and L. HEART: Regular rate and rhythm, S1, S2 without murmur, rubs, or gallops. ABDOMEN: Soft, nontender, and nondistended. Positive bowel sounds. No hepatosplenomegaly was noted. EXTREMITIES: Without any cyanosis, clubbing, rash, lesions or edema. NEUROLOGIC: Cranial nerves II through XII are grossly intact. PSYCHIATRIC: Appropriate affect, denies SI/HI, without agitation or anxiety SKIN: No ulceration or induration present. - Assessment and Plan (1) Brugada syndrome Current Visit: No Status: Acute Assessment and Plan: Continue to follow outpatient with Dr. Alcantara and Dr. Bryan Torres Continue cardiac medications No events on telemetry overnight To follow with cardiology outpatient (2) Vertigo Current Visit: No Status: Acute Assessment and Plan: Pt complaining of blurred vision, spinning sensation and difficulty ambulating. History of Brugada syndrome type III. follows with Dr. Alcantara cardiology for this. MRI brain ordered in the ED was negative MRA neck and head without flow limiting stenosis TTE with the following findings-LVEF 55-60%, normal LV chamber size wall thickness and function, normal LV diastolic function, normal RV structure and function, PFO with [id number] shunt with agitated saline. No significant valvular dysfunction, no evidence of pulmonary HTN This has been D/W cardiology who recommends aspirin and outpatient follow-up. Per cardiology that do not recommend transfer to tertiary care facility for intervention. Additionally, do not recommend additional anticoagulation at this time. Pt currently has a loop recorder. Has not been to any of his physicians in a wh ile; will need outpatient follow-up for reevaluation of loop recorder Consulted cardiology for possible loop recorder interrogation--interrogation reveals no arrhythmias with normal device check. 09/18/18--continues to have vertigo worse with activity. Denies any shortness of breath with this. Vertigo is likely caused by right to left shunting with PFO. Patient is to have outpatient follow-up with cardiology for continued monitoring. The patient reports that all the vertigo is still present is improving. Some of this may also be related to him inappropriately taking anti- HTN medications. He was hypotensive early throughout his stay. Hypotension resolved when anti-HTN medications held. Continue to monitor him overnight, continue holding anti-HTN medications to see if dizziness improves. 09/19/18--clinically, patient remained stable. Vertigo improving. He is not able to ambulate around the room with minimal standby assistance without assistive device. Cause of vertigo unclear at this time. Meclizine was increased yesterday and this may be contributing to his drinking taking some imbalance. Patient was noted to be hypotensive early on admission and antihypertensive medications have been held. Blood pressure is improvedalso be contributing to his improvement in dizziness and balance issues. Physical therapy recommendations are for outpatient vestibular therapy. This has been discussed with social work manager was attempting to sit up at time of discharge. -PT/OT for gait assessment and recommendations May benefit from outpatient vestibular therapy coordinator of genetic services seeing in consult to assess to see planning Obtain cardio follow-up upon discharge Consider referral to tertiary facility for evaluation of PFO (3) CAD (coronary artery disease) Current Visit: No Status: Acute Assessment and Plan: Denies chest pain, no evidence of telemetry overnight. Patient will need prescriptions were aspirin, statin medications at time of discharge. He has a history of CAD as well as MD 2 and S/P stents. He is very noncompliant with the medication regimen and has been greater than 1 year since he has seen a primary care provider. I have discussed this case with social se rober who is attempting to set him HCAP cystoscopy having medications filled prior to discharge. He will not be discharged with antihypertensives at this time patient was hypotensive on arrival and blood pressure improved with holding anti-HTN medications. (4) Tobacco abuse Current Visit: No Status: Acute Assessment and Plan: Reports that he no longer smokes tobacco but he does continue to vape. Ce ssation strongly advised. (5) HTN (hypertension) Current Visit: Yes Status: Acute Assessment and Plan: Continue holding anti-HTN medication at this time Episodes of hypotension on admission with dizziness and vertigo Holding anti-HTN medication, BP improved, dizziness and vertigo improving Do not resume anti-HTN meds DC He has not been taking his own anti-htn medications for greater than 6 months due to not having insurance and as well as being noncompliant He has been sporadically taking his girlfriend's 5 mg lisinopril when he feels he needs it He has been educated on the need for appropriate outpatient follow-up, appropriate use of his personal medications and not using any others medications , as well as the need for complaince (6) Medical non-compliance Current Visit: Yes Status: Acute Assessment and Plan: Patient reported noncompliance with medication regimen will need PCP set-up on D/C. Has not seen PCP in greater than 1 year. discussed the need for medication regimen compliance (7) Type II diabetes mellitus Current Visit: Yes Status: Acute Assessment and Plan: Prescribed insulin but reports he has not taken his insulin for approximately one year. Patient appears to be very noncompliant with diabetic medication regimen. He does report however that he takes basal insulin 80 units twice a day as well as metformin in addition to this. However upon further confirmation his girlfriend notes that he is not prescribed metformin and instead is taking metformin from a family member for approximately the last 4 months. He was given education is not appropriate. 09/19/18--decreasing basal dose to 9 units subcutaneous twice a day. The patient is in very noncompliant with his diabetic medication regimen. He has not been regularly taking his insulin. Additionally, he has some weight loss. He was given home dose of basal insulin overnight became hypoglycemic this morning. Restart basal insulin at a lower dose. Discussed case with social work manager regarding HCAP and assistance with medications prior to discharge. (8) Diabetic neuropathy Current Visit: Yes Status: Acute Assessment and Plan: Noncompliant with medication regimen. Pt has not taken his gabapentin in months. Gabapentin resumed at a dose of 300 mg by mouth twice a day; will need new Rx at D/C - Time Spent with Patient Total time spent is greater than 50% in coordination of care (as documented) at patient's floor/unit and/or counseling patient: less than 15 minutes Plan of Care Discussed with: patient Internal Medicine: Result - Labs CBC & Chem 7: 09/17/18 00:21 09/17/18 00:21 - ABG Interpretation ABG results: PT/INR, D-dimer D-Dimer 357 ng/mLFEU (0-500) 09/16/18 18:18 Consult Discharge Plan - Plan Referrals: Tenisha Benjamin CNP [Primary Care Provider] - (3) CAD (coronary artery disease) Qualifiers: Coronary Disease-Associated Artery/Lesion type: [place] artery [place] vs. transplanted heart: [place] heart Associated angina: without angina Qualified Code(s): I25.10 - Atherosclerotic heart disease of [place] coronary artery without angina pectoris (5) HTN (hypertension) Qualifiers: Qualified Code(s): I10 - Essential (primary) hypertension (7) Type II diabetes mellitus Qualifiers: Qualified Code(s): E11.9 - Type 2 diabetes mellitus without complications; Z79.4 - nursing home (current) use of insulin (8) Diabetic neuropathy Qualifiers: Qualified Code(s): E08.41 - Diabetes mellitus due to underlying condition with diabetic mononeuropathy
[2018-09-19] MEDS: Acetaminophen 325 MG TABLET PO PRN (13:05)
--- NOTE | 2018-09-19 14:49 | Discharge Summary ---
- NOTES TO OUTPATIENT PROVIDER Notes to Outpatient Provider: f/u with PCP in 1-week. Please provide further education regarding diabetic management. Please reassess blood pressure at follow-up to determine whether or not to restart anti-HTN medications. Date of Encounter: 09/19/18 Time of Encounter: 14:43 - Discharge Diagnosis (1) Brugada syndrome Priority: Primary Status: Acute Assessment and Plan: Continue to follow outpatient with Dr. Alcantara and Dr. Bryan Torres Continue cardiac medications No events on telemetry throughout stay I do not feel that this contributed to his symptoms To follow with cardiology outpatient (2) Vertigo Priority: Secondary Status: Acute Assessment and Plan: Pt complaining of blurred vision, spinning sensation and difficulty ambulating. History of Brugada syndrome type III. follows with Dr. Alcantara cardiology for this. MRI brain ordered in the ED was negative MRA neck and head without flow limiting stenosis TTE with the following findings-LVEF 55-60%, normal LV chamber size wall thickness and function, normal LV diastolic function, normal RV structure and function, PFO with [id number] shunt with agitated saline. No significant valvular dysfunction, no evidence of pulmonary HTN This has been D/W cardiology who recommends aspirin and outpatient follow-up. Per cardiology that do not recommend transfer to tertiary care facility for intervention. Additionally, do not recommend additional anticoagulation at this time. Pt currently has a loop recorder. Has not been to any of his physicians in a while; will need outpatient follow-up for reevaluation of loop recorder Consulted cardiology for possible loop recorder interrogation--interrogation reveals no arrhythmias with normal device check. 09/19/18--clinically, patient remained stable. Vertigo improving on day of discharge. He is able to ambulate around the room with minimal standby assistance without assistive device. Cause of vertigo unclear at this time. Meclizine was increased yesterday and this may be contributing to his improvement in dizziness. Physical therapy recommendations are for outpatient vestibular therapy. This will be set up at time of DC (3) CAD (coronary artery disease) Priority: Secondary Status: Acute Assessment and Plan: Resuming cardiac medications at discharge Qualifiers: Coronary Disease-Associated Artery/Lesion type: [place] artery [place] vs. transplanted heart: [place] heart Associated angina: without angina Qualified Code(s): I25.10 - Atherosclerotic heart disease of [place] coronary artery without angina pectoris (4) Tobacco abuse Priority: Secondary Status: Acute Assessment and Plan: Reports that he no longer smokes tobacco but he does continue to vape. Cessation strongly advised. (5) HTN (hypertension) Priority: Secondary Status: Acute Qualifiers: Qualified Code(s): I10 - Essential (primary) hypertension (6) Medical non-compliance Priority: Secondary Status: Acute Assessment and Plan: Patient reported noncompliance with medication regimen will need PCP set-up on D/C. Has not seen PCP in greater than 1 year. discussed the need for medication regimen compliance (7) Type II diabetes mellitus Priority: Secondary Status: Acute Qualifiers: Qualified Code(s): E11.9 - Type 2 diabetes mellitus without complications; Z79.4 - [facility] (current) use of insulin (8) Diabetic neuropathy Priority: Secondary Status: Acute Qualifiers: Qualified Code(s): E08.41 - Diabetes mellitus due to underlying condition with diabetic mononeuropathy Hospital course: Mr. Shook is a 53 year old male who presented with dizziness and hypotension. Patient reported that dizziness was worse with change in position and activity. Subsequently, he was diagnosed with vertigo. He was treated with meclizine and dizziness began to improve. Also, anti-HTN medications were held and this also seemed to help. On day of discharge patient was able to ambulate around the room with minimal standby assist without much difficulty in gait. PT/OT seen the patient and recommended vestibular therapy upon discharge. He will receive a prescription for this. Additionally, it should be noted that the patient is very noncompliant with his medication regimen and regular follow-up. He reports that he has not seen a PCP and well over a year and is unclear as to whether or not he still has a PCP. He is found to have an elevated hemoglobin A1c of 12 with poorly controlled diabetes. Review of September 2017 records reveal that the patient was taking Levemir twice a day, and Glucophage to help manage d iabetes however, the patient reports that this is no longer his medication regimen. He reports he is now taking 80 units subcutaneous twice a day of Levemir along with metformin for which she has not prescribed but obtains from his [id number]. In addition to this he is taking regular insulin when he feels he needs it. However, given his extremely high A1c and is highly unlikely he is compliant with any sort of insulin regimen at all. He was provided ample education regarding the fact that he should not take other people's medications and should be more compliant with his diabetic medication regimen as well as regular follow-up. While inpatient he was given subcutaneous basal insulin and developed hypoglycemia. His dose was decreased and his blood glucose improved. However at this juncture given his degree of noncompliance I do not feel that it would be safe to discharge the patient home on his prior insulin regimen of Levemir and Glucophage. I am discharging him home with a prescription for Humulin units subcutaneous twice a day and he is to follow up in the resident clinic next week for further evaluation of diabetes. He has been provided ample education regarding appropriate monitoring of blood glucose and further education regarding how to manage hyper and hypoglycemia and was able to verbalize and repeat understanding of education. Additionally, should be noted that the patient has a history of hypertension was also been noncompliant with anti-HTN medication regimen. He reports that he has been taking his girlfriend's lisinopril whenever he feels like his blood pressure may be high but as stated previously he came in and a hypotensive state. Blood pressure has been stable since stopping anti-HTN medication, I will discharge the patient without antihypertensives and he is to follow with resident clinic for further evaluation of blood pressure. After further discussion with the patient it appears some of his degree of noncompliance is due to lack of insurance and income. However, he assured me he will be able to afford Humulin 70/30 in the he would have close follow-up with resident clinic next week upon discharge. It should be mentioned that during the workup for the dizziness the patient was found to have a PFO with [id number] shunt on echocardiogram. Cardiology was consulted but stated that they did not feel like he needed to be seen inpatient and could follow-up outpatient and recommend discharging the patient on 81 mg of aspirin daily. He is to have a cardiology follow-up within 1 week of discharge. Follow-up request for cardiology pending. I will restart his home medication of atorvastatin, and gemfibrozil and Abilify upon discharge as well. The patient has been instructed to return to the ED showed dizziness worsen or should he become near syncopal/syncopal. He was able to verbalize understanding of education and denies any further questions at this time. Discharge discussed with: patient, family, nurse Time spent discussing smoking cessation with patient: 3 to 10 minutes - Time Spent with Patient Total time spent providing and/or coordinating discharge services: Less than 30 minutes - Discharge Medications Prescriptions: ARIPiprazole [Abilify] 5 mg PO HS 30 Days #30 tablet Aspirin 81 mg PO DAILY 30 Days #30 tab.chew Atorvastatin [Lipitor] 40 mg PO HS 30 Days #30 tablet Gemfibrozil [Lopid] 600 mg PO BIDAC 30 Days #60 tablet Insulin NPH/REG 70/30 (HUMAN) [Humulin 70/30 Vial] 10 unit SQ BID 30 Days #1 bottle Meclizine [Antivert] 25 mg PO TID PRN 30 Days #180 tablet PRN Reason: Dizziness Home Medications: ARIPiprazole [Abilify] 5 mg PO HS 30 Days #30 tablet 09/19/18 [Rx] Aspirin 81 mg PO DAILY 30 Days #30 tab.chew 09/19/18 [Rx] Atorvastatin [Lipitor] 40 mg PO HS 30 Days #30 tablet 09/19/18 [Rx] Gemfibrozil [Lopid] 600 mg PO BIDAC 30 Days #60 tablet 09/19/18 [Rx] Insulin NPH/REG 70/30 (HUMAN) [Humulin 70/30 Vial] 10 unit SQ BID 30 Days #1 bottle 09/19/18 [Rx] Meclizine [Antivert] 25 mg PO TID PRN 30 Days #180 tablet 09/19/18 [Rx] Allergies/Adverse Reactions: Allergy/AdvReac Type Severity Reaction Status Date / Time No Known Allergies Allergy Verified 09/17/18 10:03 Date of admission: 09/16/18 17:53 Primary care physician: Tenisha Benjamin Consults: 09/18/18 15:29 Consult to License Distributor [CONS] Routine Reason for Consult: d/c planning, questions regarding financial issues 09/19/18 00:21 Consult to License Distributor [CONS] Routine Reason for Consult: financial concerns Discharging clinician: Carter Feliciano Anticipated date of discharge: 09/19/18 - Constitutional Vitals: Temp Pulse Resp BP Pulse Ox 97.4 F L 82 16 128/84 96 09/19/18 11:35 09/19/18 11:35 11/02/18 11:35 09/19/18 11:35 09/19/18 11:35 General appearance: Present: A&O X 3, no acute distress Exam: see exam - Head Head exam: Present: atraumatic, normocephalic - Eye Eye exam: Present: PERRL, conjuntiva pink, sclera anicteric Pupils: Present: PERRL - Neck Neck exam general surgery: Present: supple, trachea midline. Absent: lymphadenopathy - Respiratory Respiratory exam: Present: CTAB. Absent: accessory muscle use, rales, rhonchi, wheezes - Cardiovascular Cardiovascular exam: Present: RRR, +S1, +S2. Absent: diastolic murmur, gallop, rubs, systolic murmur - GI/Abdominal GI/Abdominal exam: Present: normal bowel sounds, soft, no peritoneal signs. Absent: distended, tenderness - Extremities Exam Extremities exam: Present: warm, radial pulses palpable and symmetrical. Absent: calf tenderness, cyanotic, pedal edema - Neurological Exam Neurological exam: Present: CN II-XII intact, oriented X3, no focal deficits. Absent: pronater drift, facial droop, speech deficit - Skin Skin exam: Present: dry, intact - Patient Status Disposition: Home, Self-Care Condition: Fair Functional capacity at discharge: independent ambulation (may use an assistive device as needed; patient reports that he lives in a single-story domicile and has a walker at home.) Overall status at discharge: patient is progressing back to baseline - Discharge Instructions Instructions: Diabetes Mellitus Type 2 in Adults (DC) Follow Up With: Tenisha Benjamin CNP [Primary Care Provider] - - Diet and Activity Activity: increase activity as tolerated, resume usual activities as tolerated Diet: diabetic diet, low fat, low cholesterol, low salt diet
[2018-09-19 16:16] VITALS: BP 133/82
[2018-09-19] MEDS ORDERED: Insulin DETEMIR 100 UNIT/ML X5UNITS SQ SCH (21:00)
== END 2018-09-19 16:45 | disposition home or self-care (01) ==
LOC: EMEROOARM 12:23 → 3NENU 12:23
PROVIDERS: ADMIT Internal Medicine; ATTEND Internal Medicine

== ENCOUNTER 2021-06-29 06:35 | Inpatient (IN) ==
[2021-06-29] MEDS ORDERED: Ondansetron 4 MG/2 ML VIAL IVP PRN ×2 (07:11→14:34)
[2021-06-29] MEDS ORDERED: CeFAZolin Syr 2,000MG/20 ML 2,000 MG/20 ML SYRINGE IVPB ONE ×2 (07:14→11:26)
[2021-06-29] MEDS ORDERED: Ringers Solution, Lactated 1,000 ML IVC SCH (07:15)
[2021-06-29] MEDS ORDERED: Albumin Human 5% 0 GM/0 ML IV.SOLN ONE (07:16)
[2021-06-29] MEDS ORDERED: *HR* Norepinephrine 4 MG/4 ML VIAL IVC ONE (07:16)
[2021-06-29] MEDS ORDERED: *HR* Vasopressin 20 UNIT/ML VIAL ONE (07:17)
[2021-06-29] MEDS ORDERED: *HR* Midazolam HCl 2 MG/2 ML VIAL ONE (07:20)
[2021-06-29] MEDS ORDERED: *HR* Propofol 200 MG/20 ML VIAL IVP ONE (07:20)
[2021-06-29] MEDS ORDERED: *HR* FentaNYL (PF) 100 MCG/2 ML VIAL ONE ×4 (07:20→10:29)
[2021-06-29] MEDS ORDERED: *HR* Phenylephrine 10 MG/ML VIAL ONE (07:27)
[2021-06-29] MEDS ORDERED: Lidocaine -MPF 2% 2 ML VIAL ONE (07:27)
[2021-06-29] MEDS ORDERED: *HR* Rocuronium Bromide 50 MG/5 ML VIAL ONE ×3 (07:27→11:16)
[2021-06-29] MEDS ORDERED: Ondansetron 4 MG/2 ML VIAL ONE ×2 (07:27→12:26)
[2021-06-29] MEDS ORDERED: Lidocaine HCL 4 ML Topical Solution (Laryng-O-Jet Kit Sterile Pak) TP ONE (07:27)
[2021-06-29] MEDS ORDERED: Heparin 1,000 UNITS/500 mL 500 ML ONE (07:33)
[2021-06-29] MEDS ORDERED: Vancomycin 1,250 MG/262.5 ML IV.SOLN IVPB ONE (08:00)
[2021-06-29] MEDS ORDERED: Acetaminophen 120 MG RECTAL SUPP RC ONE (08:34)
[2021-06-29 08:42] LABS: ABG Base Excess 4 mEq/L (-2 to 3); ABG Chloride 100 mEq/L (98-107); ABG Glucose 105 mg/dL (60-95); ABG HCO3 29 mEq/L (21-27); ABG Oxygen Saturation 100 % (95-98); ABG PCO2 45 mmHg (35-45); ABG PH 7.42 pH Units (7.32-7.45); ABG PO2 471 mmHg (85-104); ABG TCO2 30 mEq/L (20-26)
[2021-06-29] MEDS ORDERED: Acetaminophen IV 1,000 MG/100 ML BAG IVPB ONE (08:47)
[2021-06-29] MEDS ORDERED: *HR* HYDROMORPHONE 2 MG/ML VIAL ONE ×2 (08:48→12:35)
[2021-06-29 09:17] LABS: ABG Base Excess 4 mEq/L (-2 to 3); ABG Chloride 104 mEq/L (98-107); ABG Glucose 130 mg/dL (60-95); ABG HCO3 29 mEq/L (21-27); ABG Ionized Calcium 1.13 mmol/L (1.15-1.35); ABG Oxygen Saturation 97 % (95-98); ABG PCO2 43 mmHg (35-45); ABG PH 7.43 pH Units (7.32-7.45); ABG PO2 92 mmHg (85-104); ABG TCO2 30 mEq/L (20-26)
[2021-06-29] MEDS ORDERED: *HR* Labetalol 20 MG/4 ML SYRINGE IVP ONE (11:14)
[2021-06-29] MEDS: *HR* HYDROmorphone PF 0.5 MG/0.5 ML SYRINGE IVP PRN ×2 (13:10→13:45)
[2021-06-29] MEDS ORDERED: *HR* Dextrose 50 % in Water (Vial) 50 ML VIAL IVP PRN (14:34)
[2021-06-29] MEDS ORDERED: Naloxone 0.4 MG/ML INJ IVP PRN (14:34)
[2021-06-29] MEDS ORDERED: 0.9 % Sodium Chloride 1,000 ML IVC SCH (14:34)
[2021-06-29] MEDS ORDERED: D5% in Water 1,000 ML IVC PRN (14:34)
[2021-06-29] MEDS ORDERED: Dextrose Gel 15 GM/37.5 ML TUBE PO PRN ×2 (14:34)
[2021-06-29] MEDS: Morphine PCA 30 MG/ 30 ML 30 ML PCA.VIAL IVC SCH (15:13)
[2021-06-29] MEDS: Ipratropium/Albuterol Neb 3 ML IH SCH ×2 (15:14→19:58)
[2021-06-29] MEDS: Acetylcysteine 10% 2 ML INHSOL IH SCH ×2 (15:14→19:58)
[2021-06-29] MEDS: *HR* Heparin 5,000 UNIT/ML VIAL SQ SCH ×2 (15:42→22:24)
[2021-06-29] MEDS: Insulin LISPRO 300 UNITS/3 ML VIAL SUBQ SCH (17:11)
[2021-06-29] MEDS: Famotidine 20 MG/2 ML VIAL IVP SCH (17:12)
[2021-06-29] MEDS: 0.9 % Sodium Chloride 1,000 ML IVC SCH (19:56)
[2021-06-30] MEDS: Insulin LISPRO 300 UNITS/3 ML VIAL SUBQ SCH ×5 (00:04→23:35)
[2021-06-30] MEDS: Ipratropium/Albuterol Neb 3 ML IH SCH ×7 (00:08→23:27)
[2021-06-30] MEDS: Acetylcysteine 10% 2 ML INHSOL IH SCH ×4 (03:48→19:42)
[2021-06-30 04:17] LABS: Hematocrit 28.6 % (37.5-50.1); Hemoglobin 9.3 g/dL (12.9-16.9); Mean Corpuscular HGB Conc 32.5 g/dL (31.6-35.5); Mean Corpuscular Hemoglobin 26.6 pg (28.0-33.3); Mean Corpuscular Volume 81.7 fL (83.0-100.0); Platelet Count 221 K/mcL (140-400); Red Cell Distribution Width 21.5 % (11.5-14.5); White Blood Count 6.4 K/mcL (4.3-11.1)
[2021-06-30 04:32] LABS: BUN/Creatinine Ratio 13 (6-26); Blood Urea Nitrogen 8 mg/dL (6-20); Calcium 7.9 mg/dL (8.6-10.3); Carbon Dioxide 29 mEq/L (23-29); Chloride 104 mEq/L (98-107); Glucose 124 mg/dL (70-105); Magnesium 1.5 mg/dL (1.6-2.6); Osmolality,Calculated 288 (280-300); Phosphorous 3.7 mg/dL (2.7-4.5); Potassium 3.6 mEq/L (3.5-5.1); Sodium 139 mEq/L (136-145); eGFR For African Americans > 60 (> 60); eGFR For Non-African Americans > 60 (> 60)
[2021-06-30] MEDS: *HR* Heparin 5,000 UNIT/ML VIAL SQ SCH ×3 (05:23→22:27)
[2021-06-30] MEDS: Famotidine 20 MG/2 ML VIAL IVP SCH ×2 (05:25→17:22)
[2021-06-30] MEDS: 0.9 % Sodium Chloride 1,000 ML IVC SCH ×3 (05:51→23:36)
[2021-06-30] MEDS: Morphine PCA 30 MG/ 30 ML 30 ML PCA.VIAL IVC SCH ×2 (07:03→18:02)
[2021-06-30] MEDS ORDERED: Potassium Chloride 40 MEQ, Lidocaine 1% 2 ML in 0.9 % Sodium Chloride 500 ML IVPB ONE (08:56)
[2021-06-30] MEDS ORDERED: Furosemide 20 MG/2 ML VIAL IVP ONE ×2 (23:38→23:44)
[2021-07-01 03:45] LABS: Hematocrit 27.6 % (37.5-50.1); Hemoglobin 8.6 g/dL (12.9-16.9); Mean Corpuscular HGB Conc 31.2 g/dL (31.6-35.5); Mean Corpuscular Volume 83.4 fL (83.0-100.0); Mean Platelet Volume 8.1 fL (9.4-12.4); Platelet Count 196 K/mcL (140-400); Red Blood Count 3.31 M/mcL (4.19-5.50); Red Cell Distribution Width 21.4 % (11.5-14.5); White Blood Count 5.1 K/mcL (4.3-11.1)
[2021-07-01] MEDS: Acetylcysteine 10% 2 ML INHSOL IH SCH ×4 (04:01→19:57)
[2021-07-01] MEDS: Ipratropium/Albuterol Neb 3 ML IH SCH ×6 (04:01→23:48)
[2021-07-01 04:05] LABS: BUN/Creatinine Ratio 15 (6-26); Blood Urea Nitrogen 8 mg/dL (6-20); Carbon Dioxide 27 mEq/L (23-29); Chloride 104 mEq/L (98-107); Glucose 148 mg/dL (70-105); Magnesium 1.7 mg/dL (1.6-2.6); Osmolality,Calculated 285 (280-300); Phosphorous 2.4 mg/dL (2.7-4.5); Potassium 3.8 mEq/L (3.5-5.1); Sodium 137 mEq/L (136-145); eGFR For African Americans > 60 (> 60); eGFR For Non-African Americans > 60 (> 60)
[2021-07-01] MEDS: Morphine PCA 30 MG/ 30 ML 30 ML PCA.VIAL IVC SCH ×2 (04:32→11:01)
[2021-07-01] MEDS: *HR* Heparin 5,000 UNIT/ML VIAL SQ SCH ×3 (05:51→21:18)
[2021-07-01] MEDS: Insulin LISPRO 300 UNITS/3 ML VIAL SUBQ SCH ×4 (05:51→23:19)
[2021-07-01] MEDS: Famotidine 20 MG/2 ML VIAL IVP SCH ×2 (05:51→17:23)
[2021-07-01] MEDS ORDERED: Potassium Phosphate 44 MEQ in 0.9 % Sodium Chloride 250 ML IVPB ONE (08:12)
[2021-07-01] MEDS: 0.9 % Sodium Chloride 1,000 ML IVC SCH ×2 (08:38→21:20)
[2021-07-01] MEDS ORDERED: Lidocaine Viscous Oral Soln 15 ML SOLUTION ONE (15:10)
[2021-07-01] MEDS ORDERED: *HR* Midazolam HCl 5 MG/5 ML VIAL IVP ONE ×2 (15:16→16:09)
[2021-07-01] MEDS ORDERED: Lidocaine Viscous Oral Soln 15 ML SOLUTION MM ONE (15:45)
[2021-07-01] MEDS ORDERED: *HR* EPINEPHrine 1 MG/10 ML SYRINGE INTRATRACH PRN (15:45)
[2021-07-01] MEDS ORDERED: Tetracaine/Benzocaine/Butamben 1 SPRAY AEROSOL MM ONE (15:45)
[2021-07-01] MEDS ORDERED: *HR* Etomidate 20 MG/10 ML AMPUL IVP ONE (16:09)
[2021-07-01] MEDS ORDERED: *HR* Midazolam HCl 2 MG/2 ML VIAL IVP ONE (16:09)
[2021-07-01] MEDS ORDERED: *HR* Propofol 200 MG/20 ML VIAL IVP ONE (16:09)
[2021-07-01] MEDS: FentaNYL (PF) 1,000 MCG/100 ML IV.SOLN IVC SCH ×2 (17:03→23:19)
[2021-07-01 17:16] LABS: ABG Base Excess 1 mEq/L (-2 to 3); ABG HCO3 27 mEq/L (21-27); ABG Oxygen Saturation 97 % (95-98); ABG PCO2 53 mmHg (35-45); ABG PH 7.32 pH Units (7.32-7.45); ABG PO2 95 mmHg (85-104); ABG TCO2 29 mEq/L (20-26); Blood Gas VT 420 cc
[2021-07-01] MEDS: Ampicillin/Sulbactam 1,500 MG in 0.9 % Sodium Chloride Mini Bag 100 ML IVPB SCH ×2 (17:23→23:21)
[2021-07-02] MEDS ORDERED: Artificial Tears SOLN 15 ML BOTTLE BOTH EYES PRN (00:25)
[2021-07-02] MEDS: Chlorhexidine Rinse 15 ML MOUTHWASH MM SCH ×3 (00:32→20:11)
[2021-07-02 03:41] LABS: Hematocrit 24.3 % (37.5-50.1); Hemoglobin 7.7 g/dL (12.9-16.9); Mean Corpuscular HGB Conc 31.7 g/dL (31.6-35.5); Mean Corpuscular Hemoglobin 26.7 pg (28.0-33.3); Mean Corpuscular Volume 84.4 fL (83.0-100.0); Mean Platelet Volume 8.4 fL (9.4-12.4); Platelet Count 188 K/mcL (140-400); Red Blood Count 2.88 M/mcL (4.19-5.50); Red Cell Distribution Width 21.6 % (11.5-14.5); White Blood Count 4.1 K/mcL (4.3-11.1)
[2021-07-02] MEDS: Artificial Tears SOLN 15 ML BOTTLE BOTH EYES SCH ×6 (03:57→19:31)
[2021-07-02 04:00] LABS: BUN/Creatinine Ratio 22 (6-26); Blood Urea Nitrogen 11 mg/dL (6-20); Calcium 7.9 mg/dL (8.6-10.3); Carbon Dioxide 27 mEq/L (23-29); Chloride 104 mEq/L (98-107); Glucose 108 mg/dL (70-105); Osmolality,Calculated 282 (280-300); Phosphorous 3.4 mg/dL (2.7-4.5); Potassium 3.8 mEq/L (3.5-5.1); Sodium 136 mEq/L (136-145); eGFR For African Americans > 60 (> 60); eGFR For Non-African Americans > 60 (> 60)
[2021-07-02] MEDS: Ipratropium/Albuterol Neb 3 ML IH SCH ×6 (04:15→23:37)
[2021-07-02] MEDS: Acetylcysteine 10% 2 ML INHSOL IH SCH ×4 (04:15→20:07)
[2021-07-02 04:59] LABS: ABG Base Excess 0 mEq/L (-2 to 3); ABG HCO3 25 mEq/L (21-27); ABG Oxygen Saturation 99 % (95-98); ABG PCO2 42 mmHg (35-45); ABG PH 7.38 pH Units (7.32-7.45); ABG PO2 147 mmHg (85-104); ABG TCO2 26 mEq/L (20-26); Blood Gas Modality ASSIST CONTROL; Blood Gas VT 420 cc
[2021-07-02] MEDS: *HR* Heparin 5,000 UNIT/ML VIAL SQ SCH ×3 (05:52→21:01)
[2021-07-02] MEDS: Famotidine 20 MG/2 ML VIAL IVP SCH ×2 (05:52→17:55)
[2021-07-02] MEDS: Insulin LISPRO 300 UNITS/3 ML VIAL SUBQ SCH ×4 (05:52→23:06)
[2021-07-02] MEDS: Ampicillin/Sulbactam 1,500 MG in 0.9 % Sodium Chloride Mini Bag 100 ML IVPB SCH ×4 (05:53→23:08)
[2021-07-02] MEDS: FentaNYL (PF) 1,000 MCG/100 ML IV.SOLN IVC SCH ×2 (10:05→18:52)
[2021-07-02] MEDS: 0.9 % Sodium Chloride 1,000 ML IVC SCH ×2 (10:40→23:08)
[2021-07-03 03:28] LABS: Hematocrit 23.6 % (37.5-50.1); Hemoglobin 7.4 g/dL (12.9-16.9); Mean Corpuscular HGB Conc 31.4 g/dL (31.6-35.5); Mean Corpuscular Hemoglobin 26.3 pg (28.0-33.3); Mean Platelet Volume 8.4 fL (9.4-12.4); Platelet Count 225 K/mcL (140-400); Red Blood Count 2.81 M/mcL (4.19-5.50); Red Cell Distribution Width 21.8 % (11.5-14.5); White Blood Count 3.9 K/mcL (4.3-11.1)
[2021-07-03 03:34] LABS: BUN/Creatinine Ratio 21 (6-26); Blood Urea Nitrogen 9 mg/dL (6-20); Calcium 8.2 mg/dL (8.6-10.3); Carbon Dioxide 22 mEq/L (23-29); Chloride 106 mEq/L (98-107); Glucose 106 mg/dL (70-105); Magnesium 1.6 mg/dL (1.6-2.6); Osmolality,Calculated 285 (280-300); Phosphorous 3.3 mg/dL (2.7-4.5); Potassium 3.8 mEq/L (3.5-5.1); Sodium 138 mEq/L (136-145); eGFR For African Americans > 60 (> 60); eGFR For Non-African Americans > 60 (> 60)
[2021-07-03] MEDS: Ipratropium/Albuterol Neb 3 ML IH SCH ×5 (04:08→19:54)
[2021-07-03] MEDS: Acetylcysteine 10% 2 ML INHSOL IH SCH ×4 (04:08→19:54)
[2021-07-03] MEDS: *HR* Heparin 5,000 UNIT/ML VIAL SQ SCH ×3 (05:09→20:15)
[2021-07-03] MEDS: Famotidine 20 MG/2 ML VIAL IVP SCH ×2 (05:09→18:14)
[2021-07-03] MEDS: Insulin LISPRO 300 UNITS/3 ML VIAL SUBQ SCH ×4 (05:10→23:53)
[2021-07-03] MEDS: Ampicillin/Sulbactam 1,500 MG in 0.9 % Sodium Chloride Mini Bag 100 ML IVPB SCH ×4 (05:10→23:53)
[2021-07-03] MEDS: FentaNYL (PF) 1,000 MCG/100 ML IV.SOLN IVC SCH (06:03)
[2021-07-03] MEDS: Artificial Tears SOLN 15 ML BOTTLE BOTH EYES SCH (09:28)
[2021-07-03] MEDS: Chlorhexidine Rinse 15 ML MOUTHWASH MM SCH (09:28)
[2021-07-03] MEDS ORDERED: Potassium Chloride 40 MEQ, Lidocaine 1% 2 ML in 0.9 % Sodium Chloride 500 ML IVPB ONE (10:14)
[2021-07-03] MEDS: Furosemide 20 MG/2 ML VIAL IVP ONE (11:49)
[2021-07-03] MEDS: Docusate Oral Soln 100 MG/10 ML UDC GTUBE SCH ×2 (11:53→20:14)
[2021-07-03] MEDS: 0.9 % Sodium Chloride 1,000 ML IVC SCH (14:34)
[2021-07-03] MEDS: *HR* OxyCODONE Oral Soln 5 MG/5 ML UD.LIQ GTUBE PRN ×3 (14:44→22:13)
[2021-07-04] MEDS: Ipratropium/Albuterol Neb 3 ML IH SCH ×6 (00:28→20:07)
[2021-07-04] MEDS: 0.9 % Sodium Chloride 1,000 ML IVC SCH ×2 (04:03→17:23)
[2021-07-04] MEDS: *HR* OxyCODONE Oral Soln 5 MG/5 ML UD.LIQ GTUBE PRN ×5 (04:04→20:00)
[2021-07-04 04:12] LABS: Hematocrit 24.5 % (37.5-50.1); Hemoglobin 7.8 g/dL (12.9-16.9); Mean Corpuscular HGB Conc 31.8 g/dL (31.6-35.5); Mean Corpuscular Hemoglobin 26.4 pg (28.0-33.3); Mean Corpuscular Volume 82.8 fL (83.0-100.0); Mean Platelet Volume 8.2 fL (9.4-12.4); Platelet Count 235 K/mcL (140-400); Red Blood Count 2.96 M/mcL (4.19-5.50); Red Cell Distribution Width 21.8 % (11.5-14.5); White Blood Count 4.1 K/mcL (4.3-11.1)
[2021-07-04] MEDS: Acetylcysteine 10% 2 ML INHSOL IH SCH ×4 (04:16→20:07)
[2021-07-04 04:32] LABS: BUN/Creatinine Ratio 20 (6-26); Blood Urea Nitrogen 9 mg/dL (6-20); Calcium 8.2 mg/dL (8.6-10.3); Carbon Dioxide 22 mEq/L (23-29); Chloride 105 mEq/L (98-107); Glucose 118 mg/dL (70-105); Magnesium 1.7 mg/dL (1.6-2.6); Osmolality,Calculated 284 (280-300); Phosphorous 2.8 mg/dL (2.7-4.5); Potassium 3.3 mEq/L (3.5-5.1); Sodium 137 mEq/L (136-145); eGFR For African Americans > 60 (> 60); eGFR For Non-African Americans > 60 (> 60)
[2021-07-04] MEDS: *HR* Heparin 5,000 UNIT/ML VIAL SQ SCH ×3 (06:09→22:41)
[2021-07-04] MEDS: Famotidine 20 MG/2 ML VIAL IVP SCH ×2 (06:10→18:30)
[2021-07-04] MEDS: Insulin LISPRO 300 UNITS/3 ML VIAL SUBQ SCH ×3 (06:10→18:44)
[2021-07-04] MEDS: Ampicillin/Sulbactam 1,500 MG in 0.9 % Sodium Chloride Mini Bag 100 ML IVPB SCH ×3 (06:10→18:29)
[2021-07-04] MEDS: Docusate Oral Soln 100 MG/10 ML UDC GTUBE SCH ×2 (07:51→20:00)
[2021-07-04] MEDS ORDERED: Potassium Phosphate 44 MEQ in 0.9 % Sodium Chloride 250 ML IVPB ONE (08:15)
[2021-07-04] MEDS ORDERED: Potassium Chloride 20 MEQ, Lidocaine 1% 2 ML in 0.9 % Sodium Chloride 250 ML IVPB ONE (08:16)
[2021-07-05] MEDS: *HR* OxyCODONE Oral Soln 5 MG/5 ML UD.LIQ GTUBE PRN ×6 (00:03→21:02)
[2021-07-05] MEDS: Ampicillin/Sulbactam 1,500 MG in 0.9 % Sodium Chloride Mini Bag 100 ML IVPB SCH ×2 (00:03→05:21)
[2021-07-05] MEDS: Insulin LISPRO 300 UNITS/3 ML VIAL SUBQ SCH ×5 (00:04→23:41)
[2021-07-05] MEDS: Ipratropium/Albuterol Neb 3 ML IH SCH ×7 (00:29→23:49)
[2021-07-05 03:40] LABS: Hematocrit 24.8 % (37.5-50.1); Hemoglobin 7.6 g/dL (12.9-16.9); Mean Corpuscular HGB Conc 30.6 g/dL (31.6-35.5); Mean Corpuscular Hemoglobin 25.4 pg (28.0-33.3); Mean Corpuscular Volume 82.9 fL (83.0-100.0); Mean Platelet Volume 8.2 fL (9.4-12.4); Platelet Count 238 K/mcL (140-400); Red Blood Count 2.99 M/mcL (4.19-5.50); Red Cell Distribution Width 21.8 % (11.5-14.5); White Blood Count 3.4 K/mcL (4.3-11.1)
[2021-07-05 03:57] LABS: BUN/Creatinine Ratio 21 (6-26); Blood Urea Nitrogen 10 mg/dL (6-20); Calcium 8.3 mg/dL (8.6-10.3); Carbon Dioxide 26 mEq/L (23-29); Chloride 107 mEq/L (98-107); Glucose 114 mg/dL (70-105); Magnesium 1.8 mg/dL (1.6-2.6); Osmolality,Calculated 290 (280-300); Phosphorous 3.7 mg/dL (2.7-4.5); Potassium 3.4 mEq/L (3.5-5.1); Sodium 140 mEq/L (136-145); eGFR For African Americans > 60 (> 60); eGFR For Non-African Americans > 60 (> 60)
[2021-07-05] MEDS: Acetylcysteine 10% 2 ML INHSOL IH SCH ×4 (04:13→20:33)
[2021-07-05] MEDS: Famotidine 20 MG/2 ML VIAL IVP SCH ×2 (05:21→16:59)
[2021-07-05] MEDS: *HR* Heparin 5,000 UNIT/ML VIAL SQ SCH ×3 (05:21→19:57)
[2021-07-05] MEDS: 0.9 % Sodium Chloride 1,000 ML IVC SCH ×2 (07:45→15:03)
[2021-07-05] MEDS: Docusate Oral Soln 100 MG/10 ML UDC GTUBE SCH ×2 (08:46→19:57)
[2021-07-05] MEDS: cefTRIAXone 1,000 MG in Water for inj. (sterile) 10 ML IVP SCH (10:23)
[2021-07-06] MEDS: *HR* OxyCODONE Oral Soln 5 MG/5 ML UD.LIQ GTUBE PRN ×5 (00:56→20:50)
[2021-07-06] MEDS: Acetylcysteine 10% 2 ML INHSOL IH SCH ×4 (03:48→23:26)
[2021-07-06] MEDS: Ipratropium/Albuterol Neb 3 ML IH SCH ×6 (03:48→23:26)
[2021-07-06 03:56] LABS: Hematocrit 26.2 % (37.5-50.1); Hemoglobin 8.1 g/dL (12.9-16.9); Mean Corpuscular HGB Conc 30.9 g/dL (31.6-35.5); Mean Corpuscular Hemoglobin 25.7 pg (28.0-33.3); Mean Corpuscular Volume 83.2 fL (83.0-100.0); Mean Platelet Volume 8.5 fL (9.4-12.4); Platelet Count 260 K/mcL (140-400); Red Blood Count 3.15 M/mcL (4.19-5.50); Red Cell Distribution Width 21.7 % (11.5-14.5); White Blood Count 3.9 K/mcL (4.3-11.1)
[2021-07-06 04:11] LABS: BUN/Creatinine Ratio 24 (6-26); Blood Urea Nitrogen 10 mg/dL (6-20); Calcium 8.5 mg/dL (8.6-10.3); Carbon Dioxide 29 mEq/L (23-29); Chloride 106 mEq/L (98-107); Glucose 146 mg/dL (70-105); Magnesium 1.6 mg/dL (1.6-2.6); Osmolality,Calculated 292 (280-300); Phosphorous 3.6 mg/dL (2.7-4.5); Potassium 3.9 mEq/L (3.5-5.1); Sodium 140 mEq/L (136-145); eGFR For African Americans > 60 (> 60); eGFR For Non-African Americans > 60 (> 60)
[2021-07-06] MEDS: Famotidine 20 MG/2 ML VIAL IVP SCH ×2 (05:01→18:19)
[2021-07-06] MEDS: *HR* Heparin 5,000 UNIT/ML VIAL SQ SCH ×3 (05:01→23:53)
[2021-07-06] MEDS: Insulin LISPRO 300 UNITS/3 ML VIAL SUBQ SCH ×3 (06:06→18:17)
[2021-07-06] MEDS: 0.9 % Sodium Chloride 1,000 ML IVC SCH (06:15)
[2021-07-06] MEDS: Docusate Oral Soln 100 MG/10 ML UDC GTUBE SCH ×2 (08:20→20:49)
[2021-07-06] MEDS: cefTRIAXone 1,000 MG in Water for inj. (sterile) 10 ML IVP SCH (08:21)
[2021-07-06] MEDS: Ketorolac 15 MG/ML VIAL IVP SCH ×2 (15:31→18:19)
[2021-07-07] MEDS: Ketorolac 15 MG/ML VIAL IVP SCH ×5 (02:05→23:27)
[2021-07-07] MEDS: Insulin LISPRO 300 UNITS/3 ML VIAL SUBQ SCH ×5 (02:06→23:26)
[2021-07-07] MEDS: *HR* OxyCODONE Oral Soln 5 MG/5 ML UD.LIQ GTUBE PRN ×4 (03:06→20:33)
[2021-07-07] MEDS: Acetylcysteine 10% 2 ML INHSOL IH SCH ×2 (03:52→08:03)
[2021-07-07] MEDS: Ipratropium/Albuterol Neb 3 ML IH SCH ×6 (03:52→23:14)
[2021-07-07] MEDS: *HR* Heparin 5,000 UNIT/ML VIAL SQ SCH ×3 (06:41→20:34)
[2021-07-07] MEDS: Famotidine 20 MG/2 ML VIAL IVP SCH ×2 (06:42→17:46)
[2021-07-07] MEDS: Docusate Oral Soln 100 MG/10 ML UDC GTUBE SCH ×2 (08:12→20:34)
[2021-07-07] MEDS: cefTRIAXone 1,000 MG in Water for inj. (sterile) 10 ML IVP SCH (08:12)
[2021-07-07] MEDS ORDERED: Naloxone 0.4 MG/ML INJ IVP PRN (10:32)
[2021-07-07] MEDS ORDERED: Ondansetron 4 MG/2 ML VIAL IVP PRN (10:32)
[2021-07-07] MEDS ORDERED: Dextrose Gel 15 GM/37.5 ML TUBE PO PRN ×2 (10:32)
[2021-07-07] MEDS ORDERED: D5% in Water 1,000 ML IVC PRN (10:32)
[2021-07-07] MEDS ORDERED: *HR* Dextrose 50 % in Water (Vial) 50 ML VIAL IVP PRN (10:32)
[2021-07-08] MEDS: *HR* OxyCODONE Oral Soln 5 MG/5 ML UD.LIQ GTUBE PRN ×5 (00:33→20:46)
[2021-07-08 00:56] LABS: Hematocrit 23.8 % (37.5-50.1); Hemoglobin 7.5 g/dL (12.9-16.9); Mean Corpuscular HGB Conc 31.5 g/dL (31.6-35.5); Mean Corpuscular Hemoglobin 26.6 pg (28.0-33.3); Mean Corpuscular Volume 84.4 fL (83.0-100.0); Mean Platelet Volume 8.5 fL (9.4-12.4); Platelet Count 305 K/mcL (140-400); Red Blood Count 2.82 M/mcL (4.19-5.50); Red Cell Distribution Width 21.1 % (11.5-14.5); White Blood Count 2.8 K/mcL (4.3-11.1)
[2021-07-08 01:17] LABS: BUN/Creatinine Ratio 29 (6-26); Blood Urea Nitrogen 15 mg/dL (6-20); Calcium 8.3 mg/dL (8.6-10.3); Carbon Dioxide 29 mEq/L (23-29); Chloride 104 mEq/L (98-107); Glucose 152 mg/dL (70-105); Magnesium 1.6 mg/dL (1.6-2.6); Osmolality,Calculated 296 (280-300); Potassium 4.1 mEq/L (3.5-5.1); Sodium 141 mEq/L (136-145); eGFR For African Americans > 60 (> 60); eGFR For Non-African Americans > 60 (> 60)
[2021-07-08] MEDS: Ipratropium/Albuterol Neb 3 ML IH SCH ×5 (03:26→20:18)
[2021-07-08] MEDS: Famotidine 20 MG/2 ML VIAL IVP SCH ×2 (05:12→17:27)
[2021-07-08] MEDS: Ketorolac 15 MG/ML VIAL IVP SCH ×4 (05:13→23:44)
[2021-07-08] MEDS: *HR* Heparin 5,000 UNIT/ML VIAL SQ SCH ×3 (05:13→19:49)
[2021-07-08] MEDS: Insulin LISPRO 300 UNITS/3 ML VIAL SUBQ SCH ×3 (05:48→17:32)
[2021-07-08] MEDS: Docusate Oral Soln 100 MG/10 ML UDC GTUBE SCH ×2 (07:58→19:49)
[2021-07-08] MEDS: cefTRIAXone 1,000 MG in Water for inj. (sterile) 10 ML IVP SCH (07:59)
[2021-07-09] MEDS: Ipratropium/Albuterol Neb 3 ML IH SCH ×7 (00:02→23:54)
[2021-07-09] MEDS: Insulin LISPRO 300 UNITS/3 ML VIAL SUBQ SCH ×4 (00:45→17:15)
[2021-07-09] MEDS: *HR* OxyCODONE Oral Soln 5 MG/5 ML UD.LIQ GTUBE PRN ×5 (00:46→20:20)
[2021-07-09 01:15] LABS: Hematocrit 25.7 % (37.5-50.1); Hemoglobin 8.1 g/dL (12.9-16.9); Mean Corpuscular HGB Conc 31.5 g/dL (31.6-35.5); Mean Corpuscular Volume 82.6 fL (83.0-100.0); Mean Platelet Volume 8.4 fL (9.4-12.4); Platelet Count 363 K/mcL (140-400); Red Blood Count 3.11 M/mcL (4.19-5.50); Red Cell Distribution Width 20.2 % (11.5-14.5); White Blood Count 4.5 K/mcL (4.3-11.1)
[2021-07-09 01:34] LABS: BUN/Creatinine Ratio 29 (6-26); Blood Urea Nitrogen 14 mg/dL (6-20); Calcium 8.6 mg/dL (8.6-10.3); Carbon Dioxide 29 mEq/L (23-29); Chloride 100 mEq/L (98-107); Glucose 195 mg/dL (70-105); Magnesium 1.5 mg/dL (1.6-2.6); Osmolality,Calculated 288 (280-300); Potassium 4.3 mEq/L (3.5-5.1); Sodium 136 mEq/L (136-145); eGFR For African Americans > 60 (> 60); eGFR For Non-African Americans > 60 (> 60)
[2021-07-09] MEDS: *HR* Heparin 5,000 UNIT/ML VIAL SQ SCH ×3 (05:44→20:20)
[2021-07-09] MEDS: Famotidine 20 MG/2 ML VIAL IVP SCH ×2 (05:44→17:09)
[2021-07-09] MEDS: Ketorolac 15 MG/ML VIAL IVP SCH ×3 (05:44→17:08)
[2021-07-09] MEDS: cefTRIAXone 1,000 MG in Water for inj. (sterile) 10 ML IVP SCH (08:02)
[2021-07-09] MEDS: Docusate Oral Soln 100 MG/10 ML UDC GTUBE SCH ×2 (08:02→20:20)
[2021-07-10] MEDS: Ketorolac 15 MG/ML VIAL IVP SCH ×5 (00:45→23:38)
[2021-07-10] MEDS: Insulin LISPRO 300 UNITS/3 ML VIAL SUBQ SCH ×5 (00:45→23:38)
[2021-07-10 01:02] LABS: Hematocrit 28.4 % (37.5-50.1); Hemoglobin 8.7 g/dL (12.9-16.9); Mean Corpuscular HGB Conc 30.6 g/dL (31.6-35.5); Mean Corpuscular Hemoglobin 25.4 pg (28.0-33.3); Mean Platelet Volume 8.5 fL (9.4-12.4); Platelet Count 447 K/mcL (140-400); Red Blood Count 3.42 M/mcL (4.19-5.50); Red Cell Distribution Width 20.1 % (11.5-14.5)
[2021-07-10 01:03] LABS: White Blood Count 7.3 K/mcL (4.3-11.1)
[2021-07-10 01:28] LABS: BUN/Creatinine Ratio 37 (6-26); Blood Urea Nitrogen 20 mg/dL (6-20); Calcium 8.8 mg/dL (8.6-10.3); Carbon Dioxide 27 mEq/L (23-29); Chloride 99 mEq/L (98-107); Glucose 215 mg/dL (70-105); Magnesium 1.6 mg/dL (1.6-2.6); Osmolality,Calculated 289 (280-300); Potassium 4.7 mEq/L (3.5-5.1); Sodium 135 mEq/L (136-145); eGFR For African Americans > 60 (> 60); eGFR For Non-African Americans > 60 (> 60)
[2021-07-10] MEDS: Ipratropium/Albuterol Neb 3 ML IH SCH ×6 (03:51→23:11)
[2021-07-10] MEDS: Famotidine 20 MG/2 ML VIAL IVP SCH ×2 (06:02→18:15)
[2021-07-10] MEDS: *HR* Heparin 5,000 UNIT/ML VIAL SQ SCH ×3 (06:05→20:14)
[2021-07-10] MEDS: *HR* OxyCODONE Oral Soln 5 MG/5 ML UD.LIQ GTUBE PRN ×3 (06:32→21:54)
[2021-07-10] MEDS: Docusate Oral Soln 100 MG/10 ML UDC GTUBE SCH ×2 (07:56→20:14)
[2021-07-10] MEDS: cefTRIAXone 1,000 MG in Water for inj. (sterile) 10 ML IVP SCH (07:56)
[2021-07-11] MEDS: Ipratropium/Albuterol Neb 3 ML IH SCH ×5 (02:55→20:35)
[2021-07-11 03:19] LABS: Hematocrit 25.4 % (37.5-50.1); Mean Corpuscular HGB Conc 31.5 g/dL (31.6-35.5); Mean Corpuscular Hemoglobin 26.3 pg (28.0-33.3); Mean Corpuscular Volume 83.6 fL (83.0-100.0); Mean Platelet Volume 8.5 fL (9.4-12.4); Platelet Count 458 K/mcL (140-400); Red Blood Count 3.04 M/mcL (4.19-5.50)
[2021-07-11 03:30] LABS: BUN/Creatinine Ratio 41 (6-26); Blood Urea Nitrogen 21 mg/dL (6-20); Calcium 8.7 mg/dL (8.6-10.3); Carbon Dioxide 28 mEq/L (23-29); Chloride 101 mEq/L (98-107); Glucose 202 mg/dL (70-105); Magnesium 1.7 mg/dL (1.6-2.6); Osmolality,Calculated 291 (280-300); Potassium 4.5 mEq/L (3.5-5.1); Sodium 136 mEq/L (136-145); eGFR For African Americans > 60 (> 60); eGFR For Non-African Americans > 60 (> 60)
[2021-07-11] MEDS: *HR* OxyCODONE Oral Soln 5 MG/5 ML UD.LIQ GTUBE PRN ×5 (04:02→23:51)
[2021-07-11] MEDS: Famotidine 20 MG/2 ML VIAL IVP SCH ×2 (06:03→18:14)
[2021-07-11] MEDS: *HR* Heparin 5,000 UNIT/ML VIAL SQ SCH ×3 (06:03→20:15)
[2021-07-11] MEDS: Ketorolac 15 MG/ML VIAL IVP SCH (06:03)
[2021-07-11] MEDS: Insulin LISPRO 300 UNITS/3 ML VIAL SUBQ SCH ×4 (06:03→23:51)
[2021-07-11] MEDS: Docusate Oral Soln 100 MG/10 ML UDC GTUBE SCH ×2 (07:43→20:15)
[2021-07-11] MEDS: *HR* Metformin 500 MG TABLET PO SCH (18:15)
[2021-07-11] MEDS ORDERED: Insulin DETEMIR 100 UNIT/ML X5UNITS SUBQ SCH (21:00)
[2021-07-12] MEDS: Ipratropium/Albuterol Neb 3 ML IH SCH ×4 (00:13→11:38)
[2021-07-12] MEDS: Famotidine 20 MG/2 ML VIAL IVP SCH (05:12)
[2021-07-12] MEDS: *HR* OxyCODONE Oral Soln 5 MG/5 ML UD.LIQ GTUBE PRN ×2 (05:12→10:38)
[2021-07-12] MEDS: *HR* Heparin 5,000 UNIT/ML VIAL SQ SCH (05:13)
[2021-07-12] MEDS: Insulin LISPRO 300 UNITS/3 ML VIAL SUBQ SCH ×2 (05:16→11:57)
[2021-07-12] MEDS: *HR* Metformin 500 MG TABLET PO SCH (07:36)
[2021-07-12] MEDS: Docusate Oral Soln 100 MG/10 ML UDC GTUBE SCH (07:36)
[2021-07-12] MEDS ORDERED: ARIPiprazole 10 MG TABLET PO SCH (09:30)
[2021-07-12 10:41] VITALS: TEMP 98.3
[2021-07-12 10:43] VITALS: BP 125/85
[2021-07-12 11:39] VITALS: O2SAT 90
[2021-07-12 12:52] VITALS: PULSE 97
[2021-07-12] MEDS ORDERED: Insulin DETEMIR 100 UNIT/ML X5UNITS SUBQ SCH (21:00)
== END 2021-07-12 13:31 | disposition home or self-care (01) | DRG 220 ==
LOC: SAMDAY 06:35 → ICNU 14:35 → 2NNU 07-07 17:33
PROVIDERS: ADMIT Thoracic Surgery (Cardiothoracic Vascular Surgery); ATTEND Thoracic Surgery (Cardiothoracic Vascular Surgery)

== ENCOUNTER 2022-08-28 08:41 | Observation (INO) ==
[2022-08-28] MEDS ORDERED: Iopamidol - 370 500 ML MLS IVP ONE ×2 (08:59→14:44)
[2022-08-28] MEDS ORDERED: Tdap (Boostrix) Vaccine 0.5 ML SYRINGE IM ONE (09:10)
[2022-08-28 09:48] LABS: Basophils % 0.5 %; Eosinophils # 0.1 K/mcL (0.0-0.6); Hematocrit 41.2 % (37.5-50.1); Hemoglobin 13.3 g/dL (12.9-16.9); Immature Granulocytes % 0.4 % (0-4); Lymphocytes # 0.9 K/mcL (0.6-4.6); Lymphocytes % 12.2 %; Mean Corpuscular HGB Conc 32.3 g/dL (31.6-35.5); Mean Corpuscular Hemoglobin 27.4 pg (28.0-33.3); Mean Corpuscular Volume 84.8 fL (83.0-100.0); Mean Platelet Volume 8.6 fL (9.4-12.4); Monocytes # 0.6 K/mcL (0.0-1.3); Monocytes % 7.1 %; Neutrophils # 6.1 K/mcL (1.6-8.9); Platelet Count 276 K/mcL (140-400); Red Blood Count 4.86 M/mcL (4.19-5.50); Red Cell Distribution Width 13.9 % (11.5-14.5); Segmented Neutrophils % 78.8 %; White Blood Count 7.7 K/mcL (4.3-11.1)
[2022-08-28 09:56] LABS: INR 1.1; Prothrombin Time 12.1 Seconds (9.4-12.1)
[2022-08-28 09:58] LABS: Activated Partial Thrombo Time 41.1 Seconds (26.0-36.0)
[2022-08-28 10:08] LABS: Alanine Aminotransferase 11 Units/L (7-52); Albumin 4.1 g/dL (3.5-5.7); Alkaline Phosphatase 161 Units/L (34-104); Aspartate Amino Transferase 12 Units/L (13-39); BUN/Creatinine Ratio 13 (6-26); Bilirubin,Indirect 0.3 mg/dL (0.0-1.0); Bilirubin,Total 0.3 mg/dL (0.3-1.0); Blood Urea Nitrogen 10 mg/dL (6-20); Carbon Dioxide 28 mEq/L (23-29); Chloride 101 mEq/L (98-107); Globulin 4.1 g/dL (2.4-3.5); Glucose 147 mg/dL (70-105); Osmolality,Calculated 290 (280-300); Potassium 4.3 mEq/L (3.5-5.1); Sodium 139 mEq/L (136-145); Total Protein 8.2 g/dL (6.4-8.9)
[2022-08-28] MEDS ORDERED: *HR* FentaNYL (PF) 100 MCG/2 ML VIAL IVP ONE (11:18)
[2022-08-28] MEDS ORDERED: D5% in Water 1,000 ML IVC PRN (12:48)
[2022-08-28] MEDS ORDERED: Ondansetron ODT 4 MG TAB.RAPDIS SL PRN (12:48)
[2022-08-28] MEDS ORDERED: Dextrose Gel 15 GM/37.5 ML TUBE PO PRN ×2 (12:48)
[2022-08-28] MEDS ORDERED: Naloxone 0.4 MG/ML INJ IVP PRN (12:48)
[2022-08-28] MEDS ORDERED: *HR* Dextrose 50 % in Water (Syg) 50 ML SYRINGE IVP PRN (12:48)
[2022-08-28] MEDS ORDERED: Mag Hydrox/Al Hydrox/Simeth 30 ML UDC PO PRN (12:48)
[2022-08-28] MEDS ORDERED: MOM Conc 10 ML UD.LIQ PO PRN (12:48)
[2022-08-28] MEDS ORDERED: NON-FORMULARY MEDICATION 1 EACH EACH (Gabapentin [Neurontin] 800 MG Tablet) PO SCH (13:15)
[2022-08-28] MEDS ORDERED: *HR* Heparin 5,000 UNIT/ML VIAL IVP ONE (16:30)
[2022-08-28] MEDS ORDERED: Heparin 25,000UNIT/250ML 1/2NS 25,000 UNIT/250 ML IV.SOLN IVC SCH ×2 (16:30→16:45)
[2022-08-28] MEDS ORDERED: *HR* Heparin 5,000 UNIT/ML VIAL IVP PRN ×2 (16:30)
[2022-08-28 16:39] LABS: C-Reactive Protein 96 mg/L (Less than 10)
[2022-08-28] MEDS: Insulin LISPRO 300 UNITS/3 ML VIAL SUBQ SCH ×2 (18:15→22:31)
[2022-08-28 19:31] LABS: Estimated Average Glucose 166 mg/dl; Hemoglobin A1C 7.4 %
[2022-08-28] MEDS: Gabapentin 400 MG CAPSULE PO SCH (22:30)
[2022-08-29 00:51] LABS: Hematocrit 41.4 % (37.5-50.1); Hemoglobin 13.3 g/dL (12.9-16.9); Mean Corpuscular HGB Conc 32.1 g/dL (31.6-35.5); Mean Corpuscular Hemoglobin 27.3 pg (28.0-33.3); Mean Platelet Volume 8.4 fL (9.4-12.4); Platelet Count 270 K/mcL (140-400); Red Blood Count 4.87 M/mcL (4.19-5.50); Red Cell Distribution Width 14.1 % (11.5-14.5)
[2022-08-29 01:09] LABS: Calcium 9.7 mg/dL (8.6-10.3); Chol/HDL Ratio 3.4 (0-4.9); Magnesium 1.6 mg/dL (1.6-2.6); Potassium 3.8 mEq/L (3.5-5.1)
[2022-08-29] MEDS ORDERED: Tiotropium 10 INH DOSE IH ONE (07:25)
[2022-08-29] MEDS: Tiotropium 10 INH DOSE IH SCH (07:29)
[2022-08-29] MEDS: Insulin LISPRO 300 UNITS/3 ML VIAL SUBQ SCH ×4 (08:28→20:16)
[2022-08-29] MEDS: Mirtazapine 15 MG TABLET PO SCH (08:29)
[2022-08-29] MEDS: ARIPiprazole 5 MG TABLET PO SCH (08:31)
[2022-08-29] MEDS: Gabapentin 400 MG CAPSULE PO SCH ×3 (08:31→20:16)
[2022-08-29] MEDS ORDERED: Aspirin Enteric Coated 81 MG Tablet PO SCH (09:00)
[2022-08-29] MEDS ORDERED: lisinopriL 5 MG TABLET PO SCH (09:00)
[2022-08-29] MEDS ORDERED: Apixaban 5 MG TABLET PO SCH (12:15)
[2022-08-29] MEDS ORDERED: *HR* Heparin 5,000 UNIT/ML VIAL IVP PRN ×2 (14:54)
[2022-08-29] MEDS ORDERED: Heparin 25,000UNIT/250ML 1/2NS 25,000 UNIT/250 ML IV.SOLN IVC SCH ×2 (15:00→15:15)
[2022-08-29 16:03] LABS: Hematocrit 36.4 % (37.5-50.1); Mean Corpuscular HGB Conc 32.1 g/dL (31.6-35.5); Mean Corpuscular Hemoglobin 27.5 pg (28.0-33.3); Mean Corpuscular Volume 85.4 fL (83.0-100.0); Mean Platelet Volume 8.3 fL (9.4-12.4); Platelet Count 254 K/mcL (140-400); Red Blood Count 4.26 M/mcL (4.19-5.50); Red Cell Distribution Width 14.3 % (11.5-14.5); White Blood Count 8.4 K/mcL (4.3-11.1)
[2022-08-29 16:10] LABS: Hemoglobin 11.7 g/dL (12.9-16.9)
[2022-08-29 16:12] LABS: Heparin anti-factor XA UFH 0.04 IU/mL (0.30-0.70)
[2022-08-29 16:13] LABS: INR 1.1; Prothrombin Time 12.5 Seconds (9.4-12.1)
[2022-08-29] MEDS ORDERED: 0.9 % Sodium Chloride 500 ML ONE (19:31)
[2022-08-29 19:50] LABS: Activated Partial Thrombo Time 50.2 Seconds (26.0-36.0)
[2022-08-29] MEDS: cilostazoL 100 MG TABLET PO SCH (20:16)
[2022-08-29] MEDS ORDERED: 0.9 % Sodium Chloride 1,000 ML IVC ONE (20:22)
[2022-08-29 21:47] LABS: Hematocrit 31.1 % (37.5-50.1); Hemoglobin 9.8 g/dL (12.9-16.9)
[2022-08-29] MEDS ORDERED: Iopamidol - 370 500 ML MLS IVP ONE (22:21)
[2022-08-30] MEDS ORDERED: 0.9 % Sodium Chloride 250 ML ONE (00:43)
[2022-08-30] MEDS: Acetaminophen 325 MG TABLET PO PRN ×2 (03:58→09:58)
[2022-08-30] MEDS: Gabapentin 400 MG CAPSULE PO SCH ×2 (05:18→12:17)
[2022-08-30 05:41] LABS: Basophils % 0.1 %; Eosinophils # 0.1 K/mcL (0.0-0.6); Eosinophils % 1.5 %; Hematocrit 39.4 % (37.5-50.1); Immature Granulocytes % 0.6 % (0-4); Lymphocytes % 13.4 %; Mean Corpuscular HGB Conc 31.5 g/dL (31.6-35.5); Mean Corpuscular Hemoglobin 27.2 pg (28.0-33.3); Mean Corpuscular Volume 86.4 fL (83.0-100.0); Mean Platelet Volume 8.8 fL (9.4-12.4); Monocytes # 0.7 K/mcL (0.0-1.3); Monocytes % 9.3 %; Neutrophils # 5.3 K/mcL (1.6-8.9); Platelet Count 259 K/mcL (140-400); Red Blood Count 4.56 M/mcL (4.19-5.50); Red Cell Distribution Width 14.4 % (11.5-14.5); Segmented Neutrophils % 75.1 %; White Blood Count 7.1 K/mcL (4.3-11.1)
[2022-08-30 05:42] LABS: Hemoglobin 12.4 g/dL (12.9-16.9)
[2022-08-30 06:06] LABS: Albumin 3.6 g/dL (3.5-5.7); Albumin/Globulin Ratio 1.1 (1.1-2.2); Bilirubin,Total 0.6 mg/dL (0.3-1.0); Calcium 8.7 mg/dL (8.6-10.3); Globulin 3.3 g/dL (2.4-3.5); Magnesium 1.8 mg/dL (1.6-2.6); Phosphorous 4.8 mg/dL (2.7-4.5); Potassium 3.8 mEq/L (3.5-5.1); Total Protein 6.9 g/dL (6.4-8.9)
[2022-08-30] MEDS ORDERED: lisinopriL 5 MG TABLET PO SCH ×2 (07:36→09:00)
[2022-08-30] MEDS: Tiotropium 10 INH DOSE IH SCH (07:47)
[2022-08-30] MEDS: Insulin LISPRO 300 UNITS/3 ML VIAL SUBQ SCH ×2 (08:00→11:29)
[2022-08-30] MEDS: ARIPiprazole 5 MG TABLET PO SCH (08:37)
[2022-08-30] MEDS: Mirtazapine 15 MG TABLET PO SCH (08:38)
[2022-08-30] MEDS: cilostazoL 100 MG TABLET PO SCH (08:39)
[2022-08-30] MEDS ORDERED: levoFLOXacin 750 MG TABLET PO SCH (09:00)
[2022-08-30] MEDS ORDERED: Apixaban 5 MG TABLET PO SCH (09:00)
[2022-08-30] MEDS ORDERED: amLODIPine 5 MG TABLET PO SCH (09:00)
[2022-08-30 11:12] VITALS: PULSE 91; TEMP 97.8
[2022-08-30 15:50] VITALS: BP 105/72
[2022-08-30 16:33] VITALS: O2SAT 99
[2022-08-30] MEDS ORDERED: *HR* Enoxaparin 80 MG/0.8 ML SYRINGE SQ SCH (18:00)
== END 2022-08-30 17:56 | disposition home or self-care (01) ==
LOC: 4WAOSI 08:41 → EMEROOARM 08:41 → SUATTDRO 13:22 → OBSVTOIN 13:22 → INTOOBSV 13:22 → 4WAOSI 13:51
PROVIDERS: ADMIT Internal Medicine; ATTEND Internal Medicine